=== PATIENT | male | born 1935 | race Two or more races ===

== ENCOUNTER 2022-12-02 13:12 | Inpatient (IN) | payer MEDICARE, BC ==
[~2022-12-02] VITALS: Ht 188 cm; Wt 79.3 kg
[2022-12-02 13:59] LABS: Basophils # (auto) 0.1 10 ^3/uL (0-0.2); Basophils % (auto) 0.6 % (0.0-2.0); Eosinophils # (auto) 0.1 10 ^3/uL (0-0.8); Eosinophils % (auto) 0.4 % (0.0-7.0); Hemoglobin 16.5 g/dL (13.5-17.5); Lymphocytes # (auto) 0.7 10 ^3/uL (0.4-5.4); Lymphocytes % (auto) 4.5 % (10.0-50.0); Mean Corpuscular Hemoglobin 33.9 pg (28.0-32.0); Mean Corpuscular Hgb Conc. 33.8 g/dL (32.0-36.0); Mean Corpuscular Volume 100.4 fL (80.0-100.0); Monocytes # (auto) 1.3 10 ^3/uL (0-1.3); Monocytes % (auto) 8.6 % (0.0-12.0); Neutrophils # (auto) 12.8 10 ^3/uL (1.6-8.6); Neutrophils % (auto) 85.9 % (37.0-80.0); Red Blood Cells 4.88 10^6/uL (4.5-5.90); Red Cell Distribution Width 14.1 % (11.8-14.3); White Blood Cell 14.9 10^3/uL (4.4-10.8)
[2022-12-02 14:20] LABS: Albumin 3.7 g/dL (3.4-5.0); BUN/Creatinine Ratio 24.2; Calcium 8.6 mg/dL (8.5-10.1); Magnesium 2.1 mg/dL (1.6-2.6)
[2022-12-02 14:22] LABS: Bilirubin, Total 0.6 mg/dL (0.2-1.0); Total Protein 7.3 g/dL (6.4-8.2)
[2022-12-02] MEDS ORDERED: IOHEXOL 350 MG/ML 100ML IJ ONE ×2 (16:14→16:39)
[2022-12-02] MEDS ORDERED: ATOR10TA52 PO (19:37)
[2022-12-02] MEDS ORDERED: ASPI-325 PO (19:37)
[2022-12-02] MEDS ORDERED: LEVO175T66 PO (19:37)
[2022-12-02] MEDS ORDERED: MORPHINE SULFATE INJ 2 MG/ml SYRG IV PRN (19:45)
[2022-12-02] MEDS: SODIUM CHLORIDE 0.9% 1,000 ML IV SCH (19:45)
[2022-12-02] MEDS ORDERED: cefTRIAXone 1GM/50ML D5W 50 ML IV ONE (19:45)
[2022-12-02] MEDS ORDERED: NITROGLYCERIN 0.4 MG SL TAB SL PRN (19:45)
[2022-12-02 19:59] LABS: Cholesterol 109 mg/dL (< 200)
[2022-12-02 20:01] LABS: HDL Cholesterol 50 mg/dL (40-59); LDL Cholesterol 56 mg/dL (< 100); Triglycerides 72 mg/dL (< 150)
[2022-12-03] MEDS: SODIUM CHLORIDE 0.9% 1,000 ML IV SCH ×3 (00:18→20:10)
[2022-12-03 00:55] LABS: Urine Bacteria NONE SEEN /hpf (None Seen); Urine Blood Negative /uL (Negative); Urine Mucus FEW (None Seen); Urine Specific Gravity > 1.050 (1.001-1.035); Urine WBC 3 /hpf (0 - 3)
[2022-12-03 01:16] LABS: Alcohol, Urine < 3.0 mg/dL (0-10); Barbiturate Scree,Urine NEGATIVE (NEGATIVE); Benzodiazephine Screen, Urine NEGATIVE (NEGATIVE); Cannabinoid Screen, Urine NEGATIVE (NEGATIVE)
[2022-12-03 01:18] LABS: Amphetamine Screen, Urine NEGATIVE (NEGATIVE); Cocaine Screen, Urine NEGATIVE (NEGATIVE); Opiate Scree,Urine NEGATIVE (NEGATIVE); Phencyclidine Screen, Urine NEGATIVE (NEGATIVE)
[2022-12-03] MEDS ORDERED: ONDANSETRON HCL 4 MG/2 ML VIAL IV PRN (05:30)
[2022-12-03] MEDS ORDERED: LEVOTHYROXINE SODIUM 175 MCG PO SCH (07:00)
[2022-12-03] MEDS ORDERED: PANTOPRAZOLE 40 MG/10 ML VIAL INJ IV SCH (10:00)
[2022-12-03] MEDS ORDERED: LORazepam 2MG/ML-1ML VIAL IV PRN (10:30)
[2022-12-03] MEDS: ASPirin-EC 81 mg tab PO SCH (12:13)
[2022-12-03] MEDS: cefTRIAXone 1GM/50ML D5W 50 ML IV SCH (12:14)
[2022-12-03 12:26] LABS: Folate (Folic Acid) 7.82 ng/mL (5.38-24)
[2022-12-03 22:02] VITALS: BP 126/69
[2022-12-03] MEDS: ATORVASTATIN 20 MG TAB PO SCH (23:10)
[2022-12-04] MEDS ORDERED: diphenhdrAMINE HCL 50 MG/1 ML VL IM ONE (02:45)
[2022-12-04] MEDS ORDERED: LORazepam 2MG/ML-1ML VIAL IV PRN ×2 (02:45→03:15)
[2022-12-04] MEDS: SODIUM CHLORIDE 0.9% 1,000 ML IV SCH ×3 (03:45→20:11)
[2022-12-04] MEDS: LEVOTHYROXINE SODIUM 88 MCG TAB PO SCH (07:12)
[2022-12-04] MEDS: LEVOTHYROXINE SODIUM 50 MCG TAB PO SCH (07:13)
[2022-12-04] MEDS ORDERED: LEVOTHYROXINE SODIUM 88 MCG TAB PO SCH (07:15)
[2022-12-04 08:00] VITALS: BP 103/51
[2022-12-04 08:07] LABS: RPR Non Reactive (Non Reactive)
[2022-12-04 08:47] LABS: Basophils # (auto) 0.1 10 ^3/uL (0-0.2); Basophils % (auto) 0.4 % (0.0-2.0); Eosinophils # (auto) 0 10 ^3/uL (0-0.8); Eosinophils % (auto) 0.1 % (0.0-7.0); Hematocrit 41.4 % (41.0-53.0); Hemoglobin 13.8 g/dL (13.5-17.5); Lymphocytes # (auto) 0.8 10 ^3/uL (0.4-5.4); Lymphocytes % (auto) 4.8 % (10.0-50.0); Mean Corpuscular Hemoglobin 33.5 pg (28.0-32.0); Mean Corpuscular Hgb Conc. 33.4 g/dL (32.0-36.0); Mean Corpuscular Volume 100.4 fL (80.0-100.0); Monocytes # (auto) 1.6 10 ^3/uL (0-1.3); Monocytes % (auto) 10.3 % (0.0-12.0); Neutrophils # (auto) 13.3 10 ^3/uL (1.6-8.6); Neutrophils % (auto) 84.4 % (37.0-80.0); Nucleated Red Blood Cells % 0.1 %; Red Blood Cells 4.12 10^6/uL (4.5-5.90); White Blood Cell 15.8 10^3/uL (4.4-10.8)
[2022-12-04 09:00] VITALS: BP 103/51
[2022-12-04 09:07] LABS: BUN/Creatinine Ratio 30.2; Calcium 7.6 mg/dL (8.5-10.1); Potassium 3.8 mmol/L (3.5-5.1)
[2022-12-04] MEDS: ASPirin-EC 81 mg tab PO SCH (10:50)
[2022-12-04] MEDS: cefTRIAXone 1GM/50ML D5W 50 ML IV SCH (10:50)
[2022-12-04] MEDS ORDERED: HALOPERIDOL LACTATE 5 MG/ML INJ VIAL IM PRN ×2 (11:45→20:45)
[2022-12-04 13:00] VITALS: BP 127/76
[2022-12-04] MEDS ORDERED: ALP15OS EACHEYE (20:25)
[2022-12-04] MEDS ORDERED: LATA0.0019 EACHEYE (20:25)
[2022-12-04] MEDS ORDERED: DORZ2SOL18 EACHEYE (20:25)
[2022-12-04 22:00] VITALS: BP 138/64
[2022-12-04] MEDS ORDERED: LATANOPROST 0.005 % OPTH(EYE) SOL 2.5ML RIGHTEYE SCH (22:00)
[2022-12-04] MEDS: ATORVASTATIN 20 MG TAB PO SCH ×2 (22:24→23:45)
[2022-12-04] MEDS: CYANOCOBALAMIN (B-12) 1000 MCG/1 ML VIAL IM ONE ×2 (22:24→23:45)
[2022-12-05] MEDS: SODIUM CHLORIDE 0.9% 1,000 ML IV SCH ×3 (03:45→19:45)
[2022-12-05 05:00] VITALS: BP 107/67
[2022-12-05] MEDS: LEVOTHYROXINE SODIUM 88 MCG TAB PO SCH (06:12)
[2022-12-05] MEDS: LEVOTHYROXINE SODIUM 50 MCG TAB PO SCH (06:12)
[2022-12-05 09:09] VITALS: BP 105/50
[2022-12-05] MEDS ORDERED: BRIMONIDINE 0.2% OPTH Soln 5ml EACHEYE SCH (10:00)
[2022-12-05] MEDS: TIMOLOL MAL 0.5% OPTH(EYE) SOL 5ML EACHEYE SCH ×2 (10:14→22:00)
[2022-12-05] MEDS: ASPirin-EC 81 mg tab PO SCH (10:15)
[2022-12-05] MEDS: CYANOCOBALAMIN 500 MCG TAB PO SCH (10:15)
[2022-12-05] MEDS: cefTRIAXone 1GM/50ML D5W 50 ML IV SCH (10:34)
[2022-12-05 13:00] VITALS: BP 111/56
[2022-12-05 13:16] LABS: BUN/Creatinine Ratio 19.2; Calcium 7.7 mg/dL (8.5-10.1); Magnesium 2.6 mg/dL (1.6-2.6); Potassium 3.5 mmol/L (3.5-5.1)
[2022-12-05 17:00] VITALS: BP_SYST 127; BP_SYST 128; BP_DIAS 59; BP_DIAS 70
[2022-12-05 21:53] VITALS: BP 133/66
[2022-12-05] MEDS ORDERED: LATANOPROST 0.005 % OPTH(EYE) SOL 2.5ML RIGHTEYE SCH (22:00)
[2022-12-05] MEDS: BRIMONIDINE 0.2% OPTH Soln 5ml RIGHTEYE SCH (22:44)
[2022-12-05] MEDS: LATANOPROST 0.005 % OPTH(EYE) SOL 2.5ML RIGHTEYE SCH (22:44)
[2022-12-05] MEDS: ATORVASTATIN 20 MG TAB PO SCH (22:44)
[2022-12-06] MEDS: SODIUM CHLORIDE 0.9% 1,000 ML IV SCH ×3 (03:45→19:45)
[2022-12-06 05:00] VITALS: BP 138/70
[2022-12-06] MEDS: LEVOTHYROXINE SODIUM 88 MCG TAB PO SCH (06:26)
[2022-12-06] MEDS: LEVOTHYROXINE SODIUM 50 MCG TAB PO SCH (06:26)
[2022-12-06 09:00] VITALS: BP 134/72
[2022-12-06] MEDS: cefTRIAXone 1GM/50ML D5W 50 ML IV SCH (09:03)
[2022-12-06] MEDS: TIMOLOL MAL 0.5% OPTH(EYE) SOL 5ML EACHEYE SCH ×2 (09:41→21:27)
[2022-12-06] MEDS: ASPirin-EC 81 mg tab PO SCH (09:42)
[2022-12-06] MEDS: CYANOCOBALAMIN 500 MCG TAB PO SCH (09:42)
[2022-12-06] MEDS: LATANOPROST 0.005 % OPTH(EYE) SOL 2.5ML RIGHTEYE SCH ×2 (09:42→21:27)
[2022-12-06 14:30] VITALS: BP 140/76
[2022-12-06] MEDS: ALPRAZolam 0.25 MG TAB PO PRN (17:43)
[2022-12-06] MEDS: ATORVASTATIN 20 MG TAB PO SCH (21:26)
[2022-12-06] MEDS: BRIMONIDINE 0.2% OPTH Soln 5ml RIGHTEYE SCH (21:27)
[2022-12-06 21:45] VITALS: BP 148/84
[2022-12-07] MEDS: SODIUM CHLORIDE 0.9% 1,000 ML IV SCH ×2 (03:45→09:53)
[2022-12-07] MEDS: LEVOTHYROXINE SODIUM 88 MCG TAB PO SCH (06:04)
[2022-12-07] MEDS: LEVOTHYROXINE SODIUM 50 MCG TAB PO SCH (06:04)
[2022-12-07 09:00] VITALS: BP 135/73
[2022-12-07] MEDS: cefTRIAXone 1GM/50ML D5W 50 ML IV SCH (09:31)
[2022-12-07] MEDS: CYANOCOBALAMIN 500 MCG TAB PO SCH (09:33)
[2022-12-07] MEDS: LATANOPROST 0.005 % OPTH(EYE) SOL 2.5ML RIGHTEYE SCH (09:33)
[2022-12-07] MEDS: TIMOLOL MAL 0.5% OPTH(EYE) SOL 5ML EACHEYE SCH (09:33)
[2022-12-07] MEDS: ASPirin-EC 81 mg tab PO SCH (09:33)
[2022-12-07 13:15] VITALS: BP 136/78
[2022-12-07 13:37] LABS: Potassium 3.4 mmol/L (3.5-5.1)
[2022-12-07 13:40] LABS: BUN/Creatinine Ratio 15.1; Calcium 8.3 mg/dL (8.5-10.1)
[2022-12-07] MEDS: ALPRAZolam 0.25 MG TAB PO PRN (15:51)
[2022-12-07 17:46] VITALS: BP 130/82
[2022-12-07 17:47] VITALS: BP 131/88
[2022-12-07] MEDS ORDERED: POTASSIUM CHL 20 Meq TABLET PO ONE (19:00)
== END 2022-12-07 19:00 | disposition home health service (06) | DRG 312 ==
LOC: EDBD 13:12 → ER 13:12 → TELE 19:41 → TELE-WESTW 12-03 21:24
PROVIDERS: ADMIT Registered Nurse; ATTEND Internal Medicine Geriatric Medicine
DX: R55 Syncope and collapse (principal); G93.41 Metabolic encephalopathy; N39.0 Urinary tract infection, site not specified; F03.92 Unspecified dementia, unspecified severity, with psychotic disturbance; F10.10 Alcohol abuse, uncomplicated; E03.9 Hypothyroidism, unspecified; E86.0 Dehydration; H54.61 Unqualified visual loss, right eye, normal vision left eye; I44.0 Atrioventricular block, first degree; I49.5 Sick sinus syndrome; R73.03 Prediabetes; I95.9 Hypotension, unspecified; R79.89 Other specified abnormal findings of blood chemistry; E78.5 Hyperlipidemia, unspecified; Z71.41 Alcohol abuse counseling and surveillance of alcoholic; Z20.822 Contact with and (suspected) exposure to COVID-19; Z82.49 Family history of ischemic heart disease and other diseases of the circulatory system; Z86.73 Personal history of transient ischemic attack (TIA), and cerebral infarction without residual deficits
CPT/HCPCS: 36415; 70450; 70551; 71045; 71275; 80048; 80053; 80061; 80307; 80320; 81001; 82607; 82746; 83036; 83090; 83735; 83880; 84443; 84484; 85025; 85379; 86592; 87040; 87086; 87426; 93005; 93306; 93886; 95819; 97116; 97530; C9113; G0378; J0696

== ENCOUNTER 2024-09-04 13:34 | Inpatient (IN) | payer MEDICARE, BC ==
[~2024-09-04] VITALS: Ht 180.3 cm; Wt 72.7 kg
[~2024-09-04 13:34] MED LIST: ALP15OS EACHEYE; ASPI-325 PO; ATOR10TA52 PO; BRIM0.1S3 RIGHTEYE; DORZ2SOL18 EACHEYE; LATA0.008 RIGHTEYE; LEVO175T4 PO
--- NOTE | 2024-09-04 14:15 | ED.PDOC ---
History of Present Illness HPI Comments 89Y M with PMHx HLD, TIA, and rt ankle surgery presents to ED for chief complaint fall injury. Pt states he fell out of bed and hit his head on an open dresser. Pt takes ASA daily. No known allergies. Chief Complaint: Fall Injury Time Seen by MD: 14:04 Primary Care Provider: barby Reviewed Notes: Medications, Allergies Allergies: Coded Allergies: NO KNOWN ALLERGIES (Unverified , 04/04/21) Home Meds Reported Medications Dorzolamide-Timolol (Dorzolamide Hcl/Timolol M) 1 Ml Aimee, 1 DROP EACHEYE 12/04/22 Latanoprost (LATANOPROST) 0.005 % Aimee, 1 DROP EACHEYE 12/04/22 Brimonidine Tartrate (ALPHAGAN P 0.15% OPTHALMIC) [address], 1 DROP EACHEYE 12/04/22 Levothyroxine Sodium (Levothyroxine Sodium) 175 Mcg Tab, 0.75 TAB PO DAILY 12/02/22 Aspirin (Aspirin Low Dose) 81 Mg Tab, 1 TAB PO DAILY 12/02/22 Atorvastatin Calcium (ATORVASTATIN CALCIUM) 10 Mg Tab, 1 TAB PO DAILY 12/02/22 Information Source: Patient, Spouse Mode of Arrival: Ambulatory Severity: Mild Timing: Hours Duration: Since onset Past Medical History PAST MEDICAL HISTORY: High Lipids, TIA Surgical History (Other): Rt ankle surgery x4 Family History Family History: Unknown Family History (Other): IN Social History Smoker: Non-Smoker Alcohol: Heavy Drugs: Denies Drug Use Lives In: Home Constitutional: denies: chills, diaphoresis, fatigue, fever, malaise, sweats, weakness, others EENTM: denies: blurred vision, double vision, ear bleeding, ear discharge, ear drainage, ear pain, ear ringing, eye pain, eye redness, hearing loss, mouth pain, mouth swelling, nasal discharge, nose bleeding, nose congestion, nose pain, photophobia, tearing, throat pain, throat swelling, voice changes, others Respiratory: denies: cough, hemoptysis, orthopnea, SOB at rest, shortness of breath, SOB with excertion, stridor, wheezing, others Cardiovascular: denies: chest pain, dizzy spells, diaphoresis, Dyspnea on exertion, edema, irregular heart beat, left arm pain, lightheadedness, palpitations, PND, syncope, others Gastrointestinal: denies: abdomen distended, abdominal pain, blood streaked bowels, constipated, diarrhea, dysphagia, difficulty swallowing, hematemesis, melena, nausea, poor appetite, poor fluid intake, rectal bleeding, rectal pain, vomiting, others Genitourinary: denies: burning, dysuria, flank pain, frequency, hematuria, inc ontinence, penile discharge, penile sore, pain, testicle pain, testicle swelling, urgency, others Neurological: denies: dizziness, fainting, headache, left sided numbness, left sided weakness, numbness, paresthesia, pre-existing deficit, right sided numbness, right sided weakness, seizure, speech problems, tingling, tremors, weakness, others Musculoskeletal: denies: back pain, gout, joint pain, joint swelling, muscle pain, muscle stiffness, neck pain, others Integumetry: reports: wounds; denies: bruises, change in color, change in hair/nails, dryness, laceration, lesions, lumps, rash, others Allergic/Immunocompromised: denies: Difficulty Healing, Frequent Infections, Hives, Itching, others Hematologic/Lymphatic: denies: anemia, blood clots, easy bleeding, easy bruising, swollen glands, others Endocrine: denies: excessive hunger, excessive sweating, excessive thirst, excessive urination, flushing, intolerance to cold, intolerance to heat, unexplained weight gain, unexplained weight loss, others Psychiatric: denies: anxiety, bipolar disorder, depression, hopeless, panic disorder, schizophrenia, sleepless, suicidal, others All Other Systems: Reviewed and Negative Physical Exam General Appearance: Moderate Distress, Normal HEENT: Normal ENT Inspection, Pharynx Normal, TMs Normal Neck: Full Range of Motion, Non-Tender, Normal, Normal Inspection Respiratory: Chest Non-Tender, Lungs Clear, No Accessory Muscle Use, No Respiratory Distress, Normal Breath Sounds Cardiovascular: No Edema, No JVD, No Murmur, No Gallop, Normal Peripheral Pulses, Regular Rate/Rhythm Breast Exam: Deferred Gastrointestinal: No Organomegaly, Non Tender, No Pulsatile Mass, Normal Bowel Sounds, Soft Genitalia: Deferred Pelvic: Deferred Rectal: Deferred Extremities: No calf tenderness, Normal capillary refill, Normal inspection, Normal range of motion, Non-tender, No pedal edema Musculoskeletal : Apperance: Normal Neurologic: Alert, edge polisher II-XII nml as Tested, No Motor Deficits, Normal Affect, Normal Mood, No Sensory Deficits Cerebellar Function: NOT DONE Reflexes: NOT DONE Skin: Wounds (face) Peripheral Pulses: 3+ Radial (R), 3+ Radial (L) Lymphatic: No Adenopathy Was a procedure done? Was a procedure done?: No Differential Dx Considerations may include: Head injury Electrolyte imbalance X-Ray, Labs, Meds, VS Vital Signs Date Time Temp Pulse Resp B/P (MAP) Pulse Ox O2 Delivery O2 Flow Rate FiO2 09/04/24 13:57 98.3 64 1 140/86 (104) 96 Lab Test 09/04/24 14:22 Range/Units White Blood Count Pending Red Blood Count Pending Hemoglobin Pending Hematocrit Pending Mean Corpuscular Volume Pending Mean Corpuscular Hemoglobin Pending Mean Corpuscular Hemoglobin Concent Pending Red Cell Distribution Width Pending Platelet Count Pending Mean Platelet Volume Pending Neutrophils (%) (Auto) Pending Lymphocytes (%) (Auto) Pending Monocytes (%) (Auto) Pending Basophils (%) (Auto) Pending Neutrophils # (Auto) Pending Lymphocytes # (Auto) Pending Monocytes # (Auto) Pending Sodium Level Pending Potassium Level Pending Chloride Level Pending Carbon Dioxide Level Pending Anion Gap Pending Blood Urea Nitrogen Pending Creatinine Pending Glomerular Filtration Rate Calc Pending BUN/Creatinine Ratio Pending Serum Glucose Pending Calcium Level Pending Troponin I High Sensitivity Pending [place] [address] Ph: [phone] DIAGNOSTIC IMAGING Diagnostic Imaging Report : [id number] Signed PATIENT: ROMANA BARROS ACCT: [id number] UNIT: [id number] : 1935 LOC: ER ROOM / BED: / AGE / SEX: 89 / M ADM STATUS: REG ER SERVICE 1411 ORDERING PHYSICIAN: ROLANDO SALAS MD PROCEDURE(s): HWOCT - HEAD WITHOUT CONTRAST REASON: fall ORDER NUMBER(s): [id number], ACCESSION NUMBER(s): [id number] EXAM: CT HEAD WITHOUT CONTRAST INDICATION: fall TECHNIQUE: CT of the head without intravenous contrast. Radiation Dose Information: CT Dose: CTDI volume is 63.35 mGy. Dose-length product is 1248.19 mGy*cm The dose indicators for CT are the volume Computed Tomography (CT) Dose Index (CTDIvol) and the Dose Length Product (DLP), and are measured in units of mGy and mGy-cm, respectively. These indicators are not patient dose, but values generated from the CT scanner acquisition factors. The report includes radiation exposure data for exposures received during this examination. COMPARISON: BRAIN HEAD WO CONTRAST on DOS: 12/03/22, CT ANGIO CHEST CONTRAST on DOS: 12/02/22, HEAD WITHOUT CONTRAST on DOS: 12/02/22 FINDINGS: There is no evidence of acute intracranial hemorrhage, extra-axial collection, mass effect, midline shift, herniation or hydrocephalus. The ventricles, sulci and cisterns are age appropriate. The felder-white differentiation is intact. Patchy periventricular and subcortical white matter hypoattenuation is nonspecific but may be related to small vessel ischemic disease. The visualized paranasal sinuses and mastoid air cells are clear. The surrounding soft tissues and osseous structures are unremarkable. IMPRESSION: No acute intracranial abnormality. ATED BY: JEREMY KIMBALL MD DICTATED DATE/TIME: 09/04/241434 SIGNED BY: JEREMY KIMBALL MD SIGNED DATE/TIME: 09/04/241434 CC: Patient alert. Status post fall. Hit his head against the cabinet. Vitals stable. Saturation pristine on room air. CT of the head reviewed does not show any acute changes. Because of the head injury we will need to observe. Explained to patient. Time of 1ST Reevaluation: 14:34 Reevaluation 1ST: Unchanged Patient Education/Counseling: Diagnosis, Treatment Family Education/Counseling: Diagnosis, Treatment Departure 1 Departure Time of Disposition: 14:52 Impression: Primary Impression: Head injury Qualified Codes: S09.90XA - Unspecified injury of head, initial encounter Disposition: ADMITTED INPATIENT Admit to: Med Surg Condition: Guarded Critical Care Note Critical Care Time?: No Stability Stability form required: No Heart Score Heart Score: Heart Score Response (Comments) Value History Slightly Suspicious 0 EKG Normal 0 Age >65 2 Risk Factors >3 or Hx ASHD 2 Troponin Normal limit 0 Total 4 I personally scribed for ROLANDO SALAS MD ([email or web address]) on 09/04/24 at 14:15. Electronically submitted by Sadia Raymond ([email or web address]). I personally scribed for ROLANDO SALAS MD ([email or web address]) on 09/04/24 at 14:54. Electronically submitted by Sadia Raymond ([email or web address]). ROLANDO SALAS MD Sep 04, 2024 14:15
--- NOTE | 2024-09-04 14:37 | DVH ---
EXAM: CT HEAD WITHOUT CONTRAST INDICATION: fall TECHNIQUE: CT of the head without intravenous contrast. Radiation Dose Information: CT Dose: CTDI volume is 63.35 mGy. Dose-length product is 1248.19 mGy*cm The dose indicators for CT are the volume Computed Tomography (CT) Dose Index (CTDIvol) and the Dose Length Product (DLP), and are measured in units of mGy and mGy-cm, respectively. These indicators are not patient dose, but values generated from the CT scanner acquisition factors. The report includes radiation exposure data for exposures received during this examination. COMPARISON: BRAIN HEAD WO CONTRAST on DOS: 12/03/22, CT ANGIO CHEST CONTRAST on DOS: 12/02/22, HEAD WITHO UT CONTRAST on DOS: 12/02/22 FINDINGS: There is no evidence of acute intracranial hemorrhage, extra-axial collection, mass effect, midline s hift, herniation or hydrocephalus. The ventricles, sulci and cisterns are age appropriate. The felder-white differentiation is intact. Patchy periventricular and subcortical white matter hypoattenuation is nonspecific but may be related to small vessel ischemic disease. The visualized paranasal sinuses and mastoid air cells are clear. The surrounding soft tissues and osseous structures are unremarkable. IMPRESSION: No acute intracranial abnormality.
[2024-09-04 14:53] LABS: Basophils # (auto) 0.1 10 ^3/uL (0-0.2); Basophils % (auto) 1.1 % (0.0-2.0); Eosinophils # (auto) 0.1 10 ^3/uL (0-0.8); Eosinophils % (auto) 1.3 % (0.0-7.0); Hematocrit 47.2 % (41.0-53.0); Hemoglobin 16.5 g/dL (13.5-17.5); Lymphocytes % (auto) 13.4 % (10.0-50.0); Mean Corpuscular Hemoglobin 35.7 pg (28.0-32.0); Mean Corpuscular Hgb Conc. 34.9 g/dL (32.0-36.0); Mean Corpuscular Volume 102.3 fL (80.0-100.0); Monocytes # (auto) 0.8 10 ^3/uL (0-1.3); Monocytes % (auto) 10.7 % (0.0-12.0); Neutrophils # (auto) 5.4 10 ^3/uL (1.6-8.6); Neutrophils % (auto) 73.5 % (37.0-80.0); Nucleated Red Blood Cells % 0.1 %; Platelet Count (auto) 243 10^3/uL (140-450); Red Blood Cells 4.62 10^6/uL (4.5-5.90); Red Cell Distribution Width 14.9 % (11.8-14.3); White Blood Cell 7.3 10^3/uL (4.4-10.8)
[2024-09-04 15:06] LABS: Chloride 108 mmol/L (98-107); Potassium 4.9 mmol/L (3.5-5.1); Sodium 141 mmol/L (136-145)
[2024-09-04 15:07] LABS: Anion Gap 3 (5-15); Carbon Dioxide 30 mmol/L (20-31)
[2024-09-04 15:12] LABS: BUN/Creatinine Ratio 21.3 (10.0-20.0); Blood Urea Nitrogen 17 mg/dL (9-23); Glucose 94 mg/dL (74-106)
[2024-09-04 21:07] VITALS: PULSE 99; RESP 16; O2SAT 97
[2024-09-04] MEDS ORDERED: ONDANSETRON HCL 4 MG/2 ML VIAL IV PRN (21:45)
[2024-09-04] MEDS ORDERED: ACETAMINOPHEN 325 MG TAB PO PRN (21:45)
[2024-09-04] MEDS ORDERED: NITROGLYCERIN 0.4 MG SL TAB SL PRN (21:45)
[2024-09-04] MEDS ORDERED: MORPHINE SULFATE INJ 2 MG/ml SYRG IV PRN (21:45)
[2024-09-04 22:20] LABS: Basophils # (auto) 0.1 10 ^3/uL (0-0.2); Eosinophils # (auto) 0.1 10 ^3/uL (0-0.8); Eosinophils % (auto) 1.3 % (0.0-7.0); Hematocrit 46.1 % (41.0-53.0); Hemoglobin 15.9 g/dL (13.5-17.5); Lymphocytes # (auto) 1.1 10 ^3/uL (0.4-5.4); Lymphocytes % (auto) 15.1 % (10.0-50.0); Mean Corpuscular Hemoglobin 35.2 pg (28.0-32.0); Mean Corpuscular Hgb Conc. 34.4 g/dL (32.0-36.0); Mean Corpuscular Volume 102.2 fL (80.0-100.0); Monocytes # (auto) 0.9 10 ^3/uL (0-1.3); Monocytes % (auto) 11.9 % (0.0-12.0); Neutrophils # (auto) 5.2 10 ^3/uL (1.6-8.6); Neutrophils % (auto) 70.7 % (37.0-80.0); Nucleated Red Blood Cells % 0.1 %; Platelet Count (auto) 208 10^3/uL (140-450); Red Blood Cells 4.51 10^6/uL (4.5-5.90); Red Cell Distribution Width 14.8 % (11.8-14.3); White Blood Cell 7.3 10^3/uL (4.4-10.8)
[2024-09-04 22:27] LABS: Alanine Aminotransferase 20 U/L (7-40); Albumin 4.2 g/dL (3.2-4.8); Alkaline Phosphatase 88 U/L (46-116); Anion Gap 7 (5-15); Aspartate Aminotransferase 26 U/L (13-40); BUN/Creatinine Ratio 21.7 (10.0-20.0); Blood Urea Nitrogen 15 mg/dL (9-23); Calcium 9.4 mg/dL (8.7-10.4); Carbon Dioxide 23 mmol/L (20-31); Chloride 112 mmol/L (98-107); Glucose 100 mg/dL (74-106); Sodium 142 mmol/L (136-145); Total Protein 7.2 g/dL (5.7-8.2)
--- NOTE | 2024-09-04 22:41 | DVHHPRES ---
History of Present Illness Resident Creating Document: JON HINOJOSA RESIDENT History of Present Illness ROMANA BARROS is a 89 years old hard of hearing male with PMH of dementia, HLD, TIA presented to the ED with the chief complaints of mechanical fall today morning. Patient is poor historian, spoken with interventional technologist or home nurse Alie reported today moaning patient while waking up from the bed he fell on table without LOC, hit his head. Patient he is not able to recall exactly what happened but denies dizziness, nausea, vomiting, fever, chest pain, shortness of breath and other associated symptoms. Past Medical History dementia, HLD, TIA Past Surgical History Rt ankle surgery x4, lump removal from right elbow Family History: None Past Social History Lives alone. Denies smoking, alcohol and other drug abuse Review of Systems Constitutional: Yes: Weakness Eyes: Other (age related to vision changes) ENT: Other (Hard of hearing) Respiratory: No: Cough, Dry, Shortness of breath, SOB with excertion, Wheezing, Hemoptysis, Pleuritic Pain, Sputum, Wheezing, Other Cardiovascular: No: Chest Pain, Palpitations, Orthopnea, Paroxysmal Noc. Dyspnea, Edema, Lt Headedness, Other Gastrointestinal: No: Nausea, Vomiting, Abdominal Pain, Diarrhea, Constipation, Melena, Hematochezia, Other Genitourinary: No Dysuria, No Frequency, No Incontinence, No Hematuria, No Retention, No Other Musculoskeletal: No: other, neck pain, shoulder pain, arm pain, back pain, hand pain, leg pain, foot pain Skin: Bruising, Other (Wound on right temporal head) Neurological: Confusion Allergies: Coded Allergies: NO KNOWN ALLERGIES (Unverified , 04/04/21) Medications Current Medications Medications Dose Ordered Sig/Sarah Route Start Time Stop Time Status Last Admin Dose Admin Ondansetron HCl 4 mg Q4HP PRN IV 09/04/24 21:45 Acetaminophen 650 mg Q6HP PRN PO 09/04/24 21:45 Nitroglycerin 0.4 mg Q5MINP PRN SL 09/04/24 21:45 Morphine Sulfate 2 mg Q30M PRN IV 09/04/24 21:45 Exam Vital Signs Vital Signs Date Time Temp Pulse Resp B/P (MAP) Pulse Ox O2 Delivery O2 Flow Rate FiO2 09/04/24 21:07 99 16 97 Room Air* 0 09/04/24 21:07 98.3 131/91 (104) 98.3 Exam Pt is lying on bed General Appearance: Alert, Oriented X2, Cooperative, mild confusion and distress HEENT: Wound on right temporal head, likely multiple age related bruises Respiratory: Clear to auscultation, Normal air movement, No added sounds Cardiovascular: Regular rate, Normal S1, Normal S2, No murmurs Abdominal: Active bowel sounds, Soft, no distention, no tenderness Extremities: No edema, Normal pulses, No tenderness/swelling Skin: Wound on right temporal head, likely multiple age related bruises Neuro: Normal speech, sensorimotor deficits none Psych/Mental Status: Mental status NL, Mood NL Nurse was there as sharperone during examination Labs/Xrays Labs Test 09/04/24 22:24 09/04/24 22:00 09/04/24 14:22 09/04/24 14:20 Range/Units White Blood Count 7.3 4.4-10.8 10^3/uL Red Blood Count 4.51 4.5-5.90 10^6/uL Hemoglobin 15.9 13.5-17.5 g/dL Hematocrit 46.1 41.0-53.0 % Mean Corpuscular Volume 102.2 H 80.0-100.0 fL Mean Corpuscular Hemoglobin 35.2 H 28.0-32.0 pg Mean Corpuscular Hemoglobin Concent 34.4 32.0-36.0 g/dL Red Cell Distribution Width 14.8 H 11.8-14.3 % Platelet Count 208 140-450 10^3/uL Mean Platelet Volume 8.0 6.9-10.8 fL Neutrophils (%) (Auto) 70.7 37.0-80.0 % Lymphocytes (%) (Auto) 15.1 10.0-50.0 % Monocytes (%) (Auto) 11.9 0.0-12.0 % Eosinophils (%) (Auto) 1.3 0.0-7.0 % Basophils (%) (Auto) 1.0 0.0-2.0 % Neutrophils # (Auto) 5.2 1.6-8.6 10 ^3/uL Lymphocytes # (Auto) 1.1 0.4-5.4 10 ^3/uL Monocytes # (Auto) 0.9 0-1.3 10 ^3/uL Eosinophils # (Auto) 0.1 0-0.8 10 ^3/uL Basophils # (Auto) 0.1 0-0.2 10 ^3/uL Nucleated Red Blood Cells 0.1 % Sodium Level 142 136-145 mmol/L Potassium Level 4.0 3.5-5.1 mmol/L Chloride Level 112 H 98-107 mmol/L Carbon Dioxide Level 23 20-31 mmol/L Anion Gap 7 5-15 Blood Urea Nitrogen 15 9-23 mg/dL Creatinine 0.69 L 0.700-1.30 mg/dL Glomerular Filtration Rate Calc 89 >90 mL/min BUN/Creatinine Ratio 21.7 H 10.0-20.0 Serum Glucose 100 74-106 mg/dL Calcium Level 9.4 8.7-10.4 mg/dL Total Bilirubin 1.0 0.2-1.0 mg/dL Aspartate Amino Transferase (AST) 26 13-40 U/L Alanine Aminotransferase (ALT) 20 7-40 U/L Alkaline Phosphatase 88 46-116 U/L Total Protein 7.2 5.7-8.2 g/dL Albumin 4.2 3.2-4.8 g/dL Troponin I High Sensitivity 3 L </=54 ng/L B-Type Natriuretic Peptide 170.59 0-100 pg/mL Assessment/Plan Assessment/Plan # mechanical fall without LOC # ? Acute toxic metabolic encephalopathy # dementia - head CT showed no acute changes - carotid Doppler, pending - monitor lab - fall precautions - ordered UDS SCDs for now No GI be PPX Cardiac diet Goals of care discussed with the patient for more than 27 minutes: Full code status Case management discussed with Dr. Mckeon, patient and nurse Plan discussed with: Patient My Orders Orders - JON HINOJOSA RESIDENT Procedure Category Date Status Time Admit ADMIT 09/04/24 Transmitted 21:44 Allergies KAREEM 09/04/24 In Process 21:44 Code Status CODE 09/04/24 Transmitted 21:44 Ondansetron Hcl PHA 09/04/24 In Process (Zofran) 21:45 Complete Blood Count LAB 09/05/24 Verified 04:00 Comprehensive LAB 09/05/24 Verified Metabolic Panel 04:00 Cardiac DIET 09/05/24 Transmitted Diet-2gna,Lofat,Lochol Breakfast Pt Request For Service PT 09/04/24 Logged 21:44 Carotid Duplx W Color US 09/04/24 Taken DOP 21:44 Acetaminophen Tablet PHA 09/04/24 In Process (Tylenol Tablet) 21:45 Nitroglycerin PHA 09/04/24 In Process Sublingual (Ntrostat 21:45 Morphine Sulfate PHA 09/04/24 In Process Injection 21:45 Oxygen By Nasal RT 09/04/24 Transmitted Cannula 21:[address] [facility] 09/04/24 In Process Pain 21:[address] [facility] 09/04/24 In Process From Base 21:[address] [facility] 09/04/24 In Process 24 Hours 21:[address] [facility] 09/04/24 In Process Protocol 21:[address] [facility] 09/04/24 In Process Every Shift 21:44 Vitamin D, 25-Hydroxy LAB 09/04/24 Logged 22:24 Vitamin B12 LAB 09/04/24 Logged 22:24 Urinalysis LAB 09/04/24 Logged 22:24 Thyroid Stimulating LAB 09/04/24 In Process Hormone 22:24 Stool Occult Blood LAB 09/05/24 Verified 04:00 PTPTT LAB 09/04/24 Logged 22:24 Hemoglobin A1c LAB 09/04/24 In Process 22:24 Drug Screen LAB 09/04/24 Logged 22:24 Orthostatic Vital ED NURSING 09/04/24 Transmitted Signs Blood Alcohol LAB 09/04/24 Logged 22:31 * Wound Consult CONS 09/04/24 Transmitted Folate (Folic Acid) LAB 09/04/24 Logged 22:33 Fall Precautions KAREEM 09/04/24 In Process Initiated 22:34 Date of Service: Sep 04, 2024 Billing Provider: SHONDA MCKEON MD Common Visit Codes: [id number] INP/OBS CARE (HIGH) Secondary Visit Codes: [id number] CARE PLAN 30 MINUTES JON HINOJOSA RESIDENT Sep 04, 2024 22:40 SHONDA MCKEON MD Sep 05, 2024 18:18
--- NOTE | 2024-09-04 22:50 | DVH ---
Carotid Duplex Date: 09/04/2024 09:54 PM Clinical History: Dizziness Comparison: CAROTID DUPLX W COLOR DOP on DOS: 12/03/22 Technique: Duplex Doppler evaluation of the extracranial carotid and vertebral arteries including color Doppler and spectral/pulsed waveform analysis was performed. Findings: RIGHT SIDE: The peak systolic velocities are 69.4 cm/s in the distal CCA and 76.2 cm/s in the proximal ICA.The IC A/CCA ratio is less than 2. The external carotid artery is patent with peak systolic velocity of 95.4 cm/s proximally. There is appropriate antegrade flow in the right vertebral artery, 53.1 cm/s. LEFT SIDE: The peak systolic velocities are 54 0.5 cm/s in the distal CCA and 161 0.6 cm/s in the proximal ICA. . The ICA/CCA ratio is 3.0 greater than 70% stenosis The external carotid artery is patent with peak systolic velocity of 220.5 cm/s proximally. There is appropriate antegrade flow in the left vertebral artery. IMPRESSION: 1. No hemodynamically significant stenosis noted in the right carotid system. 2. Greater 70% stenosis of the left internal carotid. 3. Reference: Radiology 2003; 229:340-346
[2024-09-04 23:02] LABS: INR 1.01 (0.9-1.15); Partial Thromboplastin Time 23.1 SEC (24.5-34.5); Prothrombin Time 10.7 sec (9.3-11.8)
[2024-09-04 23:51] VITALS: BP 119/65; PULSE 83; RESP 18; TEMP 97.6; O2SAT 94
[2024-09-05 00:13] VITALS: BP 119/65; PULSE 83; RESP 18; TEMP 97.6; O2SAT 94
[2024-09-05 05:00] VITALS: BP 120/67; PULSE 58; RESP 18; TEMP 98; O2SAT 95
[2024-09-05 06:23] LABS: Basophils # (auto) 0 10 ^3/uL (0-0.2); Eosinophils # (auto) 0.1 10 ^3/uL (0-0.8); Hemoglobin 14.2 g/dL (13.5-17.5); Lymphocytes # (auto) 0.9 10 ^3/uL (0.4-5.4); Monocytes # (auto) 0.7 10 ^3/uL (0-1.3); Neutrophils # (auto) 2.8 10 ^3/uL (1.6-8.6); Nucleated Red Blood Cells % 0.3 %
[2024-09-05 06:24] LABS: Basophils % (auto) 0.4 % (0.0-2.0); Hematocrit 41.3 % (41.0-53.0); Lymphocytes % (auto) 19.7 % (10.0-50.0); Mean Corpuscular Hemoglobin 35.2 pg (28.0-32.0); Mean Corpuscular Hgb Conc. 34.5 g/dL (32.0-36.0); Mean Corpuscular Volume 102.2 fL (80.0-100.0); Monocytes % (auto) 15.2 % (0.0-12.0); Neutrophils % (auto) 62.7 % (37.0-80.0); Platelet Count (auto) 199 10^3/uL (140-450); Red Blood Cells 4.04 10^6/uL (4.5-5.90); Red Cell Distribution Width 14.8 % (11.8-14.3); White Blood Cell 4.4 10^3/uL (4.4-10.8)
[2024-09-05 06:37] LABS: Alanine Aminotransferase 18 U/L (7-40); Albumin 3.6 g/dL (3.2-4.8); Alkaline Phosphatase 76 U/L (46-116); Anion Gap 4 (5-15); Aspartate Aminotransferase 22 U/L (13-40); BUN/Creatinine Ratio 25.8 (10.0-20.0); Blood Urea Nitrogen 16 mg/dL (9-23); Calcium 8.7 mg/dL (8.7-10.4); Carbon Dioxide 26 mmol/L (20-31); Chloride 112 mmol/L (98-107); Glucose 85 mg/dL (74-106); Potassium 3.6 mmol/L (3.5-5.1); Sodium 142 mmol/L (136-145); Total Protein 6.1 g/dL (5.7-8.2)
[2024-09-05] MEDS ORDERED: LEVOTHYROXINE SODIUM 50 MCG TAB PO ONE (07:45)
[2024-09-05 08:05] LABS: Triglycerides 80 mg/dL (< 150)
[2024-09-05 08:06] LABS: LDL Cholesterol 69 mg/dL (< 100)
[2024-09-05 08:07] LABS: Cholesterol 126 mg/dL (< 200); HDL Cholesterol 42 mg/dL (40-59)
[2024-09-05 09:10] VITALS: BP 127/66; PULSE 40; RESP 20; TEMP 98.7; O2SAT 95
[2024-09-05] MEDS: LEVOTHYROXINE SODIUM 100 MCG TAB PO ONE (10:27)
[2024-09-05] MEDS: ASPirin 81 mg TAB PO SCH (10:27)
[2024-09-05] MEDS: LEVOTHYROXINE SODIUM 25 MCG TAB PO ONE (10:28)
[2024-09-05 12:56] VITALS: BP 125/54; PULSE 70; RESP 20; TEMP 98.7; O2SAT 97
--- NOTE | 2024-09-05 15:23 | DVHPNRES ---
Progress Note Date Seen: Sep 05, 2024 Resident Creating Document: CLARISA ORTIZ RESIDENT Medical Necessity Reason Pt with a Central, PICC or Fol: No Subjective Review of Systems Patient is 89 years old male with past medical history of HLD, TIA, hypothyroidism, ? Dementia was to the ER after a fall at home. As per patient patient woke up from sleep 1 day ago and tripped over and fell and he hit his head. Patient denied losing consciousness. Denied chest pain, shortness of breath, dizziness. Initial blood lab workup revealed BNP 170, troponin I 3, TSH 6.85, serum alcohol level > 3, CT head negative for acute intracranial hemorrhage or infarction. Carotid Doppler revealed > 70% stenosis in the left internal carotid artery. PMH-HLD, TIA,? Dementia PSH- Rt ankle surgery x4, lump removal from right elbow Allergy- NKDA Personal History/ Social History- lives alone, denies smoking/alcohol/other drug abuse Patient was seen today at the bedside. Patient reports doing okay today Cardiovascular- deny acute chest pain or shortness of breath or cough or palpitation Respiratory- denies cough or short of breath or wheezing Gastrointestinal- denies any rectal bleeding, nausea or vomiting Musculoskeletal-denies acute joint swelling or tenderness or redness Neurological- denies acute dysarthria, dysphagia, change in vision Psychiatry- denies depression or SI or HI Skin- denies acute rash or purpura Patient was seen today for clinical evaluation. Labs and chart reviewed. Patient reports doing well. Injection Molding Technician spoke to patient's caregiver case, . Patient's caregiver Alie reported patient had reaction/bump before with levothyroxine. Last time patient to levothyroxine was 3 years before as per skin care specialist. Levothyroxine was discontinued for now. Patient's caregiver denied patient losing loss of consciousness following fall. Carotid Doppler revealed > 70% stenosis in the left internal carotid artery. Ordered CT angio of the head and neck for further evaluation and care. Objective vital signs Vital Sign Date Time Temp Pulse Resp B/P (MAP) Pulse Ox O2 Delivery O2 Flow Rate FiO2 09/05/24 12:56 98.7 70 20 125/54 (77) 97 98.7 09/05/24 07:30 Room Air* 0 21 Total Intake and Output 09/04/24 09/04/24 09/05/24 15:00 23:00 07:00 Intake Total 350 ml Output Total 250 ml Balance 100 ml medications Current Medications Medications Dose Ordered Sig/Sarah Route Start Time Stop Time Status Last Admin Dose Admin Ondansetron HCl 4 mg Q4HP PRN IV 09/04/24 21:45 Acetaminophen 650 mg Q6HP PRN PO 09/04/24 21:45 Nitroglycerin 0.4 mg Q5MINP PRN SL 09/04/24 21:45 Morphine Sulfate 2 mg Q30M PRN IV 09/04/24 21:45 Aspirin 81 mg DAILY PO 09/05/24 10:00 09/05/24 10:27 81 MG Atorvastatin Calcium 20 mg HS PO 09/05/24 22:00 Levothyroxine Sodium 125 mcg QAM@0600 PO 09/06/24 06:00 UNV Levothyroxine Sodium 100 mcg QAM@0600 PO 09/06/24 06:00 Levothyroxine Sodium 25 mcg DAILY@0600 PO 09/06/24 06:00 Examination General examination- bruise noted over the forehead, on the right side of the scalp, on the right fore arm, HEENT- PEERLA, no acute nasal discharge Cardiovascular- S1-S2 audible, rate and rhythm regular, no murmur Respiratory- CTAB, no wheeze or rhonchi Gastrointestinal-nontender, bowel sound+. Nondistended Musculoskeletal-no acute joint swelling or tenderness or redness# Lower extremity- no leg edema Neurological- cranial nerves intact, no acute dysarthria or dysphagia Psychiatry- denies depression or SI or HI Skin- bruise noted over the forehead, on the right side of the scalp, on the right fore arm, laboratory and microbiology Laboratory Tests 09/05/24 05:21 Test 09/05/24 05:21 Range/Units Serum Glucose 85 74-106 mg/dL Problem List/Assessment/Plan Problem List/Assessment/Plan # Mechanical fall, no loss of consciousness -CT head negative for intracranial hemorrhage or infarction -carotid Doppler revealed> 70% stenosis in the left internal carotid artery -ordered CT angio of the head and neck for further evaluation and care -fall precaution -monitor vitals # stenosis of left internal carotid artery carotid Doppler revealed> 70% stenosis in the left internal carotid artery -ordered CT angio of the head and neck for further evaluation and care # history of TIA -carotid Doppler revealed> 70% stenosis in the left internal carotid artery -ordered CT angio of the head and neck for further evaluation and care -continue aspirin 81 mg p.o. daily -Atorvastatin 20 mg p.o. q.h.s. # hypothyroidism -TSH 6.85 -as per caregiver patient had reaction from levothyroxine before -DC Levothyroid for now - # hyperlipidemia -Atorvastatin 20 mg p.o. q.h.s. #? Dementia -patient awake, alert, oriented AAOX3 Goals of care/advance care planning; FULL CODE; discussed with the patient PUD prophylaxis: DVT prophylaxis: Plan discussed with Dr. Wilkinson,,, nursing staff, patient Total time spent on patient evaluation, chart review, assessment and plan, discussion discussion >20 minutes Plan discussed with: Patient Plan discussed with: Patient, Other (RN) My Orders My Orders Orders - CLARISA ORTIZ Procedure Category Date Status Time Angio Head/Neck CT 09/05/24 Logged 12:54 Cleanse Wound With KAREEM 09/05/24 In Process Wound Clean 10:40 * Dietary Consult CONS 09/05/24 Transmitted 14:38 Date of Service: Sep 05, 2024 Billing Provider: JANAE WILKINSON MD Common Visit Codes: [id number] INP/OBS CARE(HIGH) Secondary Visit Codes: [id number] CARE PLAN 30 MINUTES CLARISA ORTIZ Sep 05, 2024 15:23 JANAE WILKINSON MD Sep 05, 2024 20:57
[2024-09-05] MEDS: ENOXAPARIN SOD 40 MG/0.4 ML SYRINGE SC ONE (16:17)
[2024-09-05] MEDS: PANTOPRAZOLE 40 MG TAB PO ONE (16:17)
[2024-09-05 17:04] VITALS: BP 112/56; PULSE 62; RESP 20; TEMP 97.8; O2SAT 92
[2024-09-05 21:00] VITALS: BP 134/66; PULSE 64; RESP 19; TEMP 98.1; O2SAT 96
[2024-09-05] MEDS: ATORVASTATIN 20 MG TAB PO SCH (21:35)
[2024-09-06] MEDS: PANTOPRAZOLE 40 MG TAB PO SCH (05:27)
[2024-09-06] MEDS: HALOPERIDOL LACTATE 5 MG/ML INJ VIAL IV PRN (05:36)
[2024-09-06 05:37] VITALS: BP 139/88; PULSE 138; RESP 19; TEMP 97.5; O2SAT 96
[2024-09-06] MEDS ORDERED: LEVOTHYROXINE SODIUM 25 MCG TAB PO SCH (06:00)
[2024-09-06] MEDS ORDERED: LEVOTHYROXINE SODIUM 100 MCG TAB PO SCH (06:00)
[2024-09-06] MEDS ORDERED: LEVOTHYROXINE SODIUM 50 MCG TAB PO SCH (06:00)
[2024-09-06 06:54] LABS: Basophils # (auto) 0 10 ^3/uL (0-0.2); Basophils % (auto) 0.4 % (0.0-2.0); Eosinophils # (auto) 0 10 ^3/uL (0-0.8); Eosinophils % (auto) 0.2 % (0.0-7.0); Hematocrit 44.5 % (41.0-53.0); Hemoglobin 15.4 g/dL (13.5-17.5); Lymphocytes # (auto) 0.6 10 ^3/uL (0.4-5.4); Lymphocytes % (auto) 8.3 % (10.0-50.0); Mean Corpuscular Hemoglobin 35.1 pg (28.0-32.0); Mean Corpuscular Hgb Conc. 34.5 g/dL (32.0-36.0); Mean Corpuscular Volume 101.6 fL (80.0-100.0); Monocytes # (auto) 0.9 10 ^3/uL (0-1.3); Monocytes % (auto) 12.2 % (0.0-12.0); Neutrophils # (auto) 5.8 10 ^3/uL (1.6-8.6); Neutrophils % (auto) 78.9 % (37.0-80.0); Nucleated Red Blood Cells % 0.1 %; Platelet Count (auto) 215 10^3/uL (140-450); Red Blood Cells 4.38 10^6/uL (4.5-5.90); Red Cell Distribution Width 14.6 % (11.8-14.3); White Blood Cell 7.3 10^3/uL (4.4-10.8)
[2024-09-06 07:25] LABS: Anion Gap 11 (5-15); Carbon Dioxide 20 mmol/L (20-31); Chloride 109 mmol/L (98-107); Potassium 3.8 mmol/L (3.5-5.1); Sodium 140 mmol/L (136-145)
[2024-09-06 07:27] LABS: Calcium 9.4 mg/dL (8.7-10.4)
[2024-09-06 07:31] LABS: BUN/Creatinine Ratio 18.4 (10.0-20.0); Blood Urea Nitrogen 16 mg/dL (9-23)
[2024-09-06 07:37] LABS: Free T3 2.98 pg/mL (2.3-4.2); Free T4 (Free Thyroxine) 0.95 ng/dL (0.89-1.76)
[2024-09-06 07:42] LABS: Glucose 122 mg/dL (74-106)
[2024-09-06 08:00] VITALS: RESP 18
[2024-09-06] MEDS: ENOXAPARIN SOD 40 MG/0.4 ML SYRINGE SC SCH (10:00)
[2024-09-06] MEDS ORDERED: LORazepam 2MG/ML-1ML VIAL IV PRN (10:15)
[2024-09-06] MEDS: LORazepam 2MG/ML-1ML VIAL ONE (10:17)
[2024-09-06] MEDS: LORazepam 2MG/ML-1ML VIAL IV PRN (10:20)
--- NOTE | 2024-09-06 15:33 | DVHPNRES ---
Progress Note Date Seen: Sep 06, 2024 Resident Creating Document: CLARISA ORTIZ RESIDENT Medical Necessity Reason Pt with a Central, PICC or Fol: No Subjective Review of Systems Patient is 89 years old male with past medical history of HLD, TIA, hypothyroidism, ? Dementia was to the ER after a fall at home. As per patient patient woke up from sleep 1 day ago and tripped over and fell and he hit his head. Patient denied losing consciousness. Denied chest pain, shortness of breath, dizziness. Initial blood lab workup revealed BNP 170, troponin I 3, TSH 6.85, serum alcohol level > 3, CT head negative for acute intracranial hemorrhage or infarction. Carotid Doppler revealed > 70% stenosis in the left internal carotid artery. PMH-HLD, TIA,? Dementia PSH- Rt ankle surgery x4, lump removal from right elbow Allergy- NKDA Personal History/ Social History- lives alone, denies smoking/alcohol/other drug abuse Patient was seen today at the bedside. Patient reports doing okay today Cardiovascular- deny acute chest pain or shortness of breath or cough or palpitation Respiratory- denies cough or short of breath or wheezing Gastrointestinal- denies any rectal bleeding, nausea or vomiting Musculoskeletal-denies acute joint swelling or tenderness or redness Neurological- denies acute dysarthria, dysphagia, change in vision Psychiatry- denies depression or SI or HI Skin- denies acute rash or purpura Patient was seen today for clinical evaluation. Labs and chart reviewed. Patient was agitated and aggressive physical and verbal at this morning. Injection Ativan 0.5 mg given. Patient was put on Risperdal 1 mg p.o. b.i.d. patient refused to do CT angio of the head and neck last night and this morning. Ordered urine analysis and microscopic examination for further evaluation and care. Ordered neurology consult for further evaluation and care of the patient. [employer] spoke to patient's caregiver, son Lincoln [phone] discussed patient's current medical condition and plan of care. Both of them agreed with the plan of care. Objective vital signs Vital Sign Date Time Temp Pulse Resp B/P (MAP) Pulse Ox O2 Delivery O2 Flow Rate FiO2 09/06/24 08:00 18 Room Air* 0 21 09/06/24 05:37 97.5 138 139/88 (105) 96 97.5 Total Intake and Output 09/05/24 09/05/24 09/06/24 15:00 23:00 07:00 Intake Total 345 ml 745 ml 0 ml Output Total 200 ml Balance 345 ml 745 ml -200 ml medications Current Medications Medications Dose Ordered Sig/Sarah Route Start Time Stop Time Status Last Admin Dose Admin Ondansetron HCl 4 mg Q4HP PRN IV 09/04/24 21:45 Acetaminophen 650 mg Q6HP PRN PO 09/04/24 21:45 Nitroglycerin 0.4 mg Q5MINP PRN SL 09/04/24 21:45 Morphine Sulfate 2 mg Q30M PRN IV 09/04/24 21:45 Aspirin 81 mg DAILY PO 09/05/24 10:00 09/05/24 10:27 81 MG Atorvastatin Calcium 20 mg HS PO 09/05/24 22:00 09/05/24 21:35 20 MG Levothyroxine Sodium 125 mcg QAM@0600 PO 09/06/24 06:00 UNV Pantoprazole Sodium 40 mg DAILY@0600 PO 09/06/24 06:00 09/06/24 05:27 40 MG Enoxaparin Sodium 40 mg DAILY SC 09/06/24 10:00 Risperidone 1 mg BID PO 09/06/24 22:00 Lorazepam 0.5 mg Q4HPRN PRN IV 09/06/24 12:30 Examination General examination- bruise noted over the forehead, on the right side of the scalp, on the right fore arm, HEENT- PEERLA, no acute nasal discharge Cardiovascular- S1-S2 audible, rate and rhythm regular, no murmur Respiratory- CTAB, no wheeze or rhonchi Gastrointestinal-nontender, bowel sound+. Nondistended Musculoskeletal-no acute joint swelling or tenderness or redness# Lower extremity- no leg edema Neurological- cranial nerves intact, no acute dysarthria or dysphagia Psychiatry- denies depression or SI or HI Skin- bruise noted over the forehead, on the right side of the scalp, on the right fore arm, laboratory and microbiology Laboratory Tests 09/06/24 06:17 Test 09/06/24 06:17 Range/Units Serum Glucose 122 H 74-106 mg/dL Problem List/Assessment/Plan Problem List/Assessment/Plan # agitation -continue risperidone 1 mg p.o. b.i.d. -monitor mental status -[employer] spoke to patient's caregiver, son Lincoln [phone] discussed patient's current medical condition and plan of care. Both of them agreed with the plan of care. # Mechanical fall, no loss of consciousness -CT head negative for intracranial hemorrhage or infarction -carotid Doppler revealed> 70% stenosis in the left internal carotid artery -ordered CT angio of the head and neck for further evaluation and care-patient refused to do CT angio -fall precaution -monitor vitals # stenosis of left internal carotid artery carotid Doppler revealed> 70% stenosis in the left internal carotid artery -ordered CT angio of the head and neck for further evaluation and care-patient refused to do CT angio # Dementia -patient was confused this morning as well as agitated and aggressive # history of TIA -carotid Doppler revealed> 70% stenosis in the left internal carotid artery -orderd CT angio of the head and neck for further evaluation and care-patient refused to do CT angio -continue aspirin 81 mg p.o. daily -Atorvastatin 20 mg p.o. q.h.s. # hypothyroidism -TSH 6.85, F T3 2.98, F T4 0.95 - -as per caregiver patient had reaction from levothyroxine before, patient did not take any levothyroxine in last 3 years -DC Levothyroid for now - # hyperlipidemia -Atorvastatin 20 mg p.o. q.h.s. Goals of care/advance care planning; FULL CODE; discussed with the patient PUD prophylaxis: DVT prophylaxis: Plan discussed with Dr. Wilkinson,,, nursing staff, patient [employer] spoke to patient's caregiver, melvi Stark [phone] discussed patient's current medical condition and plan of care. Both of them agreed with the plan of care. Total time spent on patient evaluation, chart review, assessment and plan, discussion discussion >20 minutes Plan discussed with: Patient Plan discussed with: Patient (RN) My Orders My Orders Orders - CLARISA ORTIZ RESIDENT Procedure Category Date Status Time Pantoprazole Tablet PHA 09/06/24 In Process (Protonix Tablet) 06:00 Enoxaparin Sodium PHA 09/06/24 In Process (Lovenox) 10:00 Angio Head/Neck CT 11/13/24 Logged 09:53 Risperidone Tablet PHA 09/06/24 In Process (Risperdal Tablet) 22:00 * Neurology Consult CONS 09/06/24 Transmitted 10:12 Date of Service: Sep 06, 2024 Billing Provider: JANAE WILKINSON MD Common Visit Codes: [id number] INP/OBS CARE(HIGH) CLARISA ORTIZ RESIDENT Sep 06, 2024 15:33 JANAE WILKINSON MD Sep 09, 2024 04:20
[2024-09-06 20:57] LABS: Urine Bacteria None Seen /hpf (None Seen)
[2024-09-06 21:00] VITALS: BP 116/68; PULSE 89; RESP 18; TEMP 97.9; O2SAT 93
[2024-09-06 21:19] LABS: Amphetamine Screen, Urine Neg (NEGATIVE); Barbiturate Scree,Urine Neg (NEGATIVE); Benzodiazephine Screen, Urine Neg (NEGATIVE); Cannabinoid Screen, Urine Neg (NEGATIVE); Cocaine Screen, Urine Neg (NEGATIVE); Opiate Scree,Urine Neg (NEGATIVE); Phencyclidine Screen, Urine Neg (NEGATIVE)
[2024-09-06 21:33] LABS: Urine Blood 3+ /uL (Negative); Urine Clarity Clear (Clear); Urine Color Yellow (Yellow); Urine Mucus FEW (None Seen); Urine Protein, UAD Negative (Negative); Urine Specific Gravity 1.016 (1.001-1.035); Urine Urobilinogen Normal (Negative); Urine WBC 17 /hpf (0 - 3); Urine pH 5.5 (5.0-9.0)
--- NOTE | 2024-09-06 22:11 | DVHINCON2 ---
Date of service: Sep 06, 2024 Referring Physician Samanta Burciaga Reason for Consultation Agitation, fall, combative History of Present Illness Mr. Lindsey is a 89 years old right-handed gentleman with a history of dyslipidemia, bradycardia, glaucoma, macular degeneration, right eye blindness, arthritis, the patient came to the hospital on09/04/24 with a chief complaint of fall injury. At that time, he was awake, oriented to himself only, not able to provide history I saw him on 12/03/2022 for "rule out stroke" He has a history of cognitive dysfunction, that will be further described, in the morning on 09/06/2024, with the patient was in his room, he become agitated, combative, and stephanie felder was called on him, happened to be close to his room, and with the his behavior difficulty, I have discussed with Dr. Wilkinson about his problems/symptoms According to my reports dated 12/03/2022, the patient had progressive short-term memory difficulty since [id number], meanwhile he also had intermittent visual hallucination where he saw nonexisting creatures all persons, typically towards the late afternoon or in the evening. At that time, he did not have bowel control problems or gait disturbance, he was seen by Lorenzo Saini neurologist at that time, ER note mentioned in the history of TIA [phone], no answer, no answer, , no answer [id number] RPR, 12/03/2022: Nonreactive UDS, 09/06/2024: Negative Plasma alcohol, 09/04/2024: < 3 Urinalysis, 09/06/2024: WBC: 17, urine leukocyte esterase: Negative WBC/HB/PLT/MCV, 09/06/2024: 7.3/15.4/215/101.6 CRP, 09/05/2024: Unremarkable TG/CHO L/LDL/HDL, 11/2022: 72/109/56/50, 09/05/2024: 80/126/69/42 Vitamin B12, 11/2022: 227, 08/2024: 249 Folic acid, 11/2022: 7.82, 08/2024: 33.25 TSH, 12/02/22: 5.61, 12/03/22: 2.06, 08/2024: 6.85 Doppler, 09/04/2024: 1. No hemodynamically significant stenosis noted in the right carotid system. 2. Greater 70% stenosis of the left internal carotid CT head, 12/02/2022: No intracranial hemorrhage. MRI is recommended if clinical symptoms persist CT head, 09/04/2024: No acute intracranial abnormality MRI headache, 12/03/2022: There is chronic tiny right posterior frontal cortical infarct There is no acute infarct. There is no hemorrhage. Past Medical History Dyslipidemia, bradycardia, glaucoma, macular degeneration, right eye blindness, arthritis Past Surgical History Right eye surgery, loop recorder implantation, ankle and knee surgeries Family History: Patient reports no known family medical history. Family History Heart attack, no dementia Social History He is not a tobacco smoker, no history of drug, alcohol use Allergies: Coded Allergies: NO KNOWN ALLERGIES (Unverified , 04/04/21) Home Meds Reported Medications Brimonidine Tartrate (Alphagan P) 0.1 % Aimee, 1 DROP RIGHTEYE TID for 90 Days, #15 09/06/24 Dorzolamide-Timolol (Dorzolamide Hcl/Timolol M) 1 Ml Aimee, 1 DROP EACHEYE BID for 50 Days, #10 12/04/22 Latanoprost (LATANOPROST) 0.005 % Aimee, 1 DROP RIGHTEYE HS for 50 Days, #2.5 12/04/22 Levothyroxine Sodium (Levothyroxine Sodium) 175 Mcg Tab, 0.75 TAB PO DAILY 12/02/22 Aspirin (Aspirin Low Dose) 81 Mg Tab, 1 TAB PO DAILY for 90 Days, #90 12/02/22 Atorvastatin Calcium (ATORVASTATIN CALCIUM) 10 Mg Tab, 1 TAB PO DAILY for 90 Days, #90 12/02/22 Discontinued Reported Medications Brimonidine Tartrate (ALPHAGAN P 0.15% OPTHALMIC) [address], 1 DROP EACHEYE 12/04/22 Current Medications Current Medications Medications (Trade) Dose Ordered Sig/Sarah Route PRN Reason Start Time Stop Time Status Last Admin Atorvastatin Calcium (Lipitor) 20 mg HS PO 09/05/24 22:00 09/05/24 21:35 Levothyroxine Sodium (Synthroid Tablet) 125 mcg QAM@0600 PO 09/06/24 06:00 UNV Levothyroxine Sodium (Synthroid Tablet) 100 mcg QAM@0600 PO 09/06/24 06:00 09/05/24 15:49 DC Levothyroxine Sodium (Synthroid Tablet) 25 mcg DAILY@0600 PO 09/06/24 06:00 09/05/24 15:49 DC Pantoprazole Sodium (Protonix Tablet) 40 mg DAILY@0600 PO 09/06/24 06:00 09/06/24 05:27 Enoxaparin Sodium (Lovenox) 40 mg DAILY SC 09/06/24 10:00 Haloperidol Lactate (Haldol) 5 mg Q8HP PRN IV AGITATION 09/06/24 05:30 09/06/24 06:43 DC 09/06/24 05:36 Lorazepam (Ativan Inj) 0.5 mg PRN PRN IV ANXIETY 09/06/24 10:15 09/06/24 12:18 DC Risperidone (RisperDAL TABLET) 1 mg ONCE STAT PO 09/06/24 10:09 09/06/24 10:30 DC Risperidone (RisperDAL TABLET) 1 mg BID PO 09/06/24 22:00 Lorazepam (Ativan Inj) 0.5 mg Q4HPRN PRN IV ANXIETY 09/06/24 12:30 Review of Systems As above, the other system negative Vital Signs Vital Signs Date Time Temp Pulse Resp B/P (MAP) Pulse Ox O2 Delivery O2 Flow Rate FiO2 09/06/24 08:00 18 Room Air* 0 21 09/06/24 05:37 97.5 138 139/88 (105) 96 97.5 Physical Exam GENERAL EXAM: General: the patient is well developed and nourished. No acute distress. HEENT: Normocephalic, neck is supple, no carotid bruits. No mass RESPIRATORY: Normal respiratory effort with symmetrical lung expansion. Lungs clear to auscultation. CARDIOVASCULAR: Regular rate and rhythm with no murmurs. S1, S2. ABDOMEN: Soft, nontender, normal bowel sound NEUROLOGICAL: MENTAL STATUS: Awake and alert. Oriented to person, place. Poor historian SPEECH, LANGUAGE, HIGHER CORTICAL FUNCTION: no aphasia or dysathria. CRANIAL NERVES: #2: Intact visual weston to confrontation. #3,4,6: Pupils are reactive, right surgical pupil. EOMs full and conjugate. No nystagmus. #5: Facial sensation intact in all three divisions bilaterally. Mandibular strength intact. #7: Facial muscles symmetrical and strength intact. #8: Hearing grossly normal to voice. #9,10: Uvula and soft palate rise in the midline. Swallow and voice are normal. #11: Trapezius and sternomastoid strength intact bilaterally. #12: Tongue midline. No fasciculations or atrophy. SENSATION: Sensation to touch and pinprick is normal. MOTOR: Normal tone in the upper and lower extremity. Mild bilateral intrinsic hand muscle atrophy. No abnormal movements or posturing. Muscle strength of the major groups in the upper extremities is 5/5. Muscle strength of the major groups in the lower extremities is 5/5. REFLEXES: Deep tendon reflexes are symmetrical. No pathological reflexes. CEREBELLAR/COORDINATION: Finger to nose is normal bilaterally. GAIT/STATION: deferred Labs/Diagnostic Data Labs Test 09/06/24 20:56 09/06/24 06:17 09/05/24 05:21 09/04/24 22:52 Range/Units Urine Color Yellow Yellow Urine Clarity Clear Clear Urine pH 5.5 5.0-9.0 Urine Specific [place] 1.016 1.001-1.035 Urine Protein Negative Negative Urine Ketones 2+ H Negative Urine Blood 3+ H Negative /uL Urine Nitrite Negative Negative Urine Bilirubin Negative Negative Urine Urobilinogen Normal Negative mg/dL Urine Leukocyte Esterase Negative Negative /uL Urine RBC 360 0 - 3 /hpf Urine WBC 17 0 - 3 /hpf Urine Squamous Epithelial Cells Few <5 /hpf Urine Bacteria None seen None Seen /hpf Urine Mucus Few None Seen Urine Glucose Normal Normal mg/dL Urine Opiates Screen Neg NEGATIVE Urine Fentanyl Screen Neg NEGATIVE Urine Barbiturates Screen Neg NEGATIVE Urine Phencyclidine Screen Neg NEGATIVE Urine Amphetamines Screen Neg NEGATIVE Urine Benzodiazepines Screen Neg NEGATIVE Urine Cocaine Screen Neg NEGATIVE Urine Cannabinoids Screen Neg NEGATIVE White Blood Count 7.3 # 4.4-10.8 10^3/uL Red Blood Count 4.38 L 4.5-5.90 10^6/uL Hemoglobin 15.4 13.5-17.5 g/dL Hematocrit 44.5 41.0-53.0 % Mean Corpuscular Volume 101.6 H 80.0-100.0 fL Mean Corpuscular Hemoglobin 35.1 H 28.0-32.0 pg Mean Corpuscular Hemoglobin Concent 34.5 32.0-36.0 g/dL Red Cell Distribution Width 14.6 H 11.8-14.3 % Platelet Count 215 140-450 10^3/uL Mean Platelet Volume 7.9 6.9-10.8 fL Neutrophils (%) (Auto) 78.9 37.0-80.0 % Lymphocytes (%) (Auto) 8.3 L 10.0-50.0 % Monocytes (%) (Auto) 12.2 H 0.0-12.0 % Eosinophils (%) (Auto) 0.2 0.0-7.0 % Basophils (%) (Auto) 0.4 0.0-2.0 % Neutrophils # (Auto) 5.8 1.6-8.6 10 ^3/uL Lymphocytes # (Auto) 0.6 0.4-5.4 10 ^3/uL Monocytes # (Auto) 0.9 0-1.3 10 ^3/uL Eosinophils # (Auto) 0 0-0.8 10 ^3/uL Basophils # (Auto) 0 0-0.2 10 ^3/uL Nucleated Red Blood Cells 0.1 % Sodium Level 140 136-145 mmol/L Potassium Level 3.8 3.5-5.1 mmol/L Chloride Level 109 H 98-107 mmol/L Carbon Dioxide Level 20 20-31 mmol/L Anion Gap 11 5-15 Blood Urea Nitrogen 16 9-23 mg/dL Creatinine 0.87 0.700-1.30 mg/dL Glomerular Filtration Rate Calc 83 >90 mL/min BUN/Creatinine Ratio 18.4 10.0-20.0 Serum Glucose 122 H 74-106 mg/dL Calcium Level 9.4 8.7-10.4 mg/dL Free Thyroxine (T4) Calculated 0.95 0.89-1.76 ng/dL Free Triiodothyronine (T3) pg/mL 2.98 2.3-4.2 pg/mL Total Bilirubin 1.0 0.2-1.0 mg/dL Aspartate Amino Transferase (AST) 22 13-40 U/L Alanine Aminotransferase (ALT) 18 7-40 U/L Alkaline Phosphatase 76 46-116 U/L Total Protein 6.1 5.7-8.2 g/dL Albumin 3.6 3.2-4.8 g/dL Triglycerides Level 80 < 150 mg/dL Cholesterol Level 126 < 200 mg/dL LDL Cholesterol 69 < 100 mg/dL HDL Cholesterol 42 40-59 mg/dL Vitamin B12 Level 249 211-911 pg/mL Vitamin D 25-Hydroxy 48.9 30.0-100 ng/mL Folic Acid 33.25 >5.38 ng/mL Plasma/Serum Blood Alcohol < 3.0 <10 mg/dL Test 09/04/24 20:37 09/04/24 14:22 09/04/24 14:20 Range/Units Prothrombin Time 10.7 9.3-11.8 sec Prothrombin Time INR 1.01 0.9-1.15 Activated Partial Thromboplast Time 23.1 L 24.5-34.5 SEC Hemoglobin A1c 5.3 <5.7 % A1C Troponin I High Sensitivity 3 L </=54 ng/L Thyroid Stimulating Hormone (TSH) 6.85 H 0.55-4.78 uIU/mL B-Type Natriuretic Peptide 170.59 0-100 pg/mL Assessment Agitation, like the patient was has metabolic encephalopathy/hospital delirium Cognitive dysfunction, he likely has dementia Carotid stenosis per carotid Doppler Low vitamin B12 History of TIA per ER note Plan/Recommendation Monitoring Supportive treatment Telemetry Sitter in the room MRI brain Aspirin 81 mg daily Lipitor 20 mg daily Vitamin B12 supplementation DVT prophylaxis/SCD Up to chair Physical therapy Room bright during the daytime More recommendation per clinical course This medical document was created using an electronic medical record system with [employer] dictation system. Although this document has been carefully reviewed, there may still be some phonetic and typographical errors. These areas are purely typographical due to imperfections of the software programs, and do not reflect any compromise in the patient's medical care. Plan discussed with: Other KIMBERLEY MATAMOROS MD Sep 06, 2024 22:11
[2024-09-06] MEDS: CYANOCOBALAMIN (B-12) 1000 MCG/1 ML VIAL IM ONE (23:24)
[2024-09-06] MEDS: risperiDONE 1 MG TAB PO SCH (23:25)
[2024-09-07] VITALS (7 sets, daily range): BP systolic 105–124; BP diastolic 52–65; PULSE 49–98; RESP 17–19; TEMP 97.3–97.9; O2SAT 92–97
[2024-09-07 06:35] LABS: Basophils # (auto) 0 10 ^3/uL (0-0.2); Eosinophils # (auto) 0.1 10 ^3/uL (0-0.8); Eosinophils % (auto) 1.6 % (0.0-7.0); Hemoglobin 12.9 g/dL (13.5-17.5); Neutrophils # (auto) 3.2 10 ^3/uL (1.6-8.6); Nucleated Red Blood Cells % 0.3 %
[2024-09-07 06:38] LABS: Basophils % (auto) 0.2 % (0.0-2.0); Hematocrit 38.1 % (41.0-53.0); Lymphocytes % (auto) 18.5 % (10.0-50.0); Mean Corpuscular Hgb Conc. 33.9 g/dL (32.0-36.0); Mean Corpuscular Volume 103.4 fL (80.0-100.0); Monocytes # (auto) 0.9 10 ^3/uL (0-1.3); Monocytes % (auto) 17.1 % (0.0-12.0); Neutrophils % (auto) 62.6 % (37.0-80.0); Platelet Count (auto) 185 10^3/uL (140-450); Red Blood Cells 3.69 10^6/uL (4.5-5.90); Red Cell Distribution Width 14.4 % (11.8-14.3); White Blood Cell 5.2 10^3/uL (4.4-10.8)
[2024-09-07 06:39] LABS: Anion Gap 11 (5-15); Calcium 8.9 mg/dL (8.7-10.4); Carbon Dioxide 20 mmol/L (20-31); Chloride 111 mmol/L (98-107); Potassium 3.6 mmol/L (3.5-5.1); Sodium 142 mmol/L (136-145)
[2024-09-07 06:45] LABS: BUN/Creatinine Ratio 23.8 (10.0-20.0); Blood Urea Nitrogen 15 mg/dL (9-23); Glucose 77 mg/dL (74-106)
[2024-09-07] MEDS: CYANOCOBALAMIN 500 MCG TAB PO SCH (09:03)
[2024-09-07] MEDS: risperiDONE 1 MG TAB PO STA (09:03)
--- NOTE | 2024-09-07 10:51 | DVHPN2 ---
Progress Note - Dictate Date Seen: Sep 07, 2024 Medical Necessity Reason Pt with a Central, PICC or Fol: No Subjective Mr. Lindsey is a 89 years old right-handed gentleman with a history of dyslipidemia, bradycardia, glaucoma, macular degeneration, right eye blindness, arthritis, the patient came to the hospital on09/04/24 with a chief complaint of fall injury. I saw him on 12/03/2022 for "rule out stroke" Have seen and examined the patient, I have discussed with his nurse and other medical staff, in the room. He was awake, oriented to person, place, he knows year and the month, he may not remember what happened yesterday morning I have discussed with his , he confirm slowly progressive short-term memory difficulty for four years. There is no family history of dementia, he was not on dementia treatment I have discussed with her about the patient's low vitamin B12 RPR, 12/03/2022: Nonreactive UDS, 09/06/2024: Negative Plasma alcohol, 09/04/2024: < 3 Urinalysis, 09/06/2024: WBC: 17, urine leukocyte esterase: Negative WBC/HB/PLT/MCV, 09/06/2024: 7.3/15.4/215/101.6 CRP, 09/05/2024: Unremarkable TG/CHO L/LDL/HDL, 11/2022: 72/109/56/50, 09/05/2024: 80/126/69/42 Vitamin B12, 11/2022: 227, 08/2024: 249 Folic acid, 11/2022: 7.82, 08/2024: 33.25 TSH, 12/02/22: 5.61, 12/03/22: 2.06, 08/2024: 6.85 Echocardiogram, 12/03/2022: Technically good study. Off axis views. Concentric LVH. RV enlargement and left atrial enlargement. Sigmoid septum. Valves are normal. EF of 60%. Normal RV function. Mild TR. No pericardial effusion masses or vegetations discernible Doppler, 09/04/2024: 1. No hemodynamically significant stenosis noted in the right carotid system. 2. Greater 70% stenosis of the left internal carotid CT head, 12/02/2022: No intracranial hemorrhage. MRI is recommended if clinical symptoms persist CT head, 09/04/2024: No acute intracranial abnormality MRI headache, 12/03/2022: There is chronic tiny right posterior frontal cortical infarct There is no acute infarct. There is no hemorrhage. vital signs Vital Sign Date Time Temp Pulse Resp B/P (MAP) Pulse Ox O2 Delivery O2 Flow Rate FiO2 09/07/24 09:00 97.6 97 18 108/63 (78) 93 97.6 09/07/24 08:30 Room Air* 0 21 Total Intake and Output 09/06/24 09/06/24 09/07/24 15:00 23:00 07:00 Intake Total 400 ml 400 ml Balance 400 ml 400 ml medications Current Medications Medications Dose Ordered Sig/Sarah Route Start Time Stop Time Status Last Admin Dose Admin Ondansetron HCl 4 mg Q4HP PRN IV 09/04/24 21:45 Acetaminophen 650 mg Q6HP PRN PO 09/04/24 21:45 Nitroglycerin 0.4 mg Q5MINP PRN SL 09/04/24 21:45 Morphine Sulfate 2 mg Q30M PRN IV 09/04/24 21:45 Aspirin 81 mg DAILY PO 09/05/24 10:00 09/07/24 09:03 81 MG Atorvastatin Calcium 20 mg HS PO 09/05/24 22:00 09/06/24 23:25 20 MG Levothyroxine Sodium 125 mcg QAM@0600 PO 09/06/24 06:00 UNV Pantoprazole Sodium 40 mg DAILY@0600 PO 09/06/24 06:00 09/07/24 06:41 40 MG Enoxaparin Sodium 40 mg DAILY SC 09/06/24 10:00 09/07/24 09:03 40 MG Risperidone 1 mg BID PO 09/06/24 22:00 09/07/24 09:03 1 MG Lorazepam 0.5 mg Q4HPRN PRN IV 09/06/24 12:30 Cyanocobalamin 500 mcg DAILY PO 09/07/24 10:00 09/07/24 09:03 500 MCG objective General: the patient is well developed and nourished. No acute distress. MENTAL STATUS: Awake and alert. Oriented to person, place. Poor historian SPEECH, LANGUAGE, HIGHER CORTICAL FUNCTION: no aphasia or dysathria. CRANIAL NERVES: Right eye blind, can only see at specific ankle. Pupils are reactive, right surgical pupil. EOMs full and conjugate. No nystagmus. Facial sensation intact in all three divisions bilaterally. Mandibular strength intact. Facial muscles symmetrical and strength intact. SENSATION: Sensation to touch and pinprick is normal. MOTOR: Normal tone in the upper and lower extremity. Mild bilateral intrinsic hand muscle atrophy. No abnormal movements or posturing. Muscle strength of the major groups in the extremities is 5/5. REFLEXES: Deep tendon reflexes are symmetrical. No pathological reflexes. CEREBELLAR/COORDINATION: Finger to nose is normal bilaterally. GAIT/STATION: deferred laboratory and microbiology Laboratory Tests 09/07/24 05:11 Test 09/07/24 05:11 Range/Units Serum Glucose 77 74-106 mg/dL Problem List Agitation, like the patient was has metabolic encephalopathy/hospital delirium Cognitive dysfunction, he likely has dementia Carotid stenosis per carotid Doppler Low vitamin B12 Chronic stroke per MR brain scan dated 12/03/2022 Assessment/Plan Monitoring Supportive treatment Telemetry Sitter in the room MRI brain Aspirin 81 mg daily Lipitor 20 mg daily Vitamin B12 supplementation DVT prophylaxis/SCD Up to chair Physical therapy Room bright during the daytime More recommendation per clinical course This medical document was created using an electronic medical record system with [employer] computerized dictation system. Although this document has been carefully reviewed, there may still be some phonetic and typographical errors. These areas are purely typographical due to imperfections of the software programs, and do not reflect any compromise in the patient's medical care. Prognosis poor Plan discussed with: Spouse, Other Total Time (mins): 40 KIMBERLEY MATAMOROS MD Sep 07, 2024 10:51
--- NOTE | 2024-09-07 11:06 | DVH ---
EXAM: MRI BRAIN HEAD WO CONTRAST HISTORY: CVA COMPARISON: CT HEAD WITHOUT CONTRAST on DOS: 09/04/24, BRAIN HEAD WO CONTRAST on DOS: 12/03/22, HEAD WI THOUT CONTRAST on DOS: 12/02/22 TECHNIQUE: MRI was performed utilizing multiple appropriate imaging planes and pulse sequences. FINDINGS: SUPRATENTORIAL REGION: No evidence for acute ischemia or intracranial hemorrhage. Scattered ill-defi michael FLAIR hyperintensities are noted within the bilateral periventricular region, prado radiata and subcortical white matter. POSTERIOR FOSSA: Unremarkable. BRAINSTEM: Unremarkable. SELLAR/SUPRASELLAR REGION: Unremarkable. VENTRICLES, CISTERNS, SULCI: Age-appropriate. ORBITS: Unremarkable. PARANASAL SINUSES: Mild diffuse paranasal sinus mucosal thickening. A small mucous retention cyst no sheila in the left sphenoid sinus. MASTOID AIR CELLS: Unremarkable. VASCULATURE: Unremarkable. BONES/ SOFT TISSUES: Unremarkable. OTHER: None. IMPRESSION: 1. No acute intracranial process identified. 2. Mild global cortical atrophy and stable mild chronic microvascular ischemic changes. 3. Chronic mild paranasal sinus disease.
--- NOTE | 2024-09-07 15:14 | DVH ---
INDICATION: H/O TIA COMPARISON: None TECHNIQUE: CTA head without and with intravenous contrast. CTA neck with intravenous contrast. 3D image postprocessing was performed on a dedicated workstation and images were used for interpretation and reporting. Radiation Dose Information: CT Dose: CTDI volume is 23.29 mGy. Dose-length product is 984.08 mGy*cm FINDINGS: CT head: There is no evidence of acute intracranial hemorrhage, extra-axial collection, mass effect, midline s hift, herniation or hydrocephalus. The ventricles, sulci and cisterns are age appropriate. The felder -white differentiation is intact. The visualized paranasal sinuses and mastoid air cells are clear. The surrounding soft tissues and osseous structures are unremarkable. CTA head: There is normal enhancement of the visualized distal internal carotid, anterior and middle cerebral a rteries. There is a normal anterior communicating artery complex. There are bilateral posterior com municating arteries. The vertebral, basilar, cerebellar and posterior cerebral arteries are within n ormal limits. The early parenchymal enhancement is grossly unremarkable. The visualized intracrania l venous structures are grossly unremarkable. CTA neck: The visualized thoracic aortic arch and proximal great vessels are unremarkable. Less than 50% stenosis of the left proximal internal carotid artery secondary to atherosclerotic plaq ue. 50% short-segment stenosis of the proximal right internal carotid artery secondary to atherosclerotic plaque. The cervical segments of the right and left vertebral arteries are within normal limits. Right verteb ral artery appears to terminate at the level of PICA (normal variant ). The limited visualized lung apices are clear. Multilevel degenerative changes of the spine. IMPRESSION: No evidence of hemodynamically significant intracranial stenosis, proximal occlusion or aneurysm. Less than 50% stenosis of the left proximal internal carotid artery secondary to atherosclerotic plaq ue. 50% short-segment stenosis of the proximal right internal carotid artery secondary to atherosclerotic plaque. All CT scans at this medical facility are performed using dose modulation techniques as appropriate t o a performed exam including the following: Automated exposure control was utilized; adjustment of th e MA and/or KV according to patient size; and use of iterative reconstruction technique.
--- NOTE | 2024-09-07 16:06 | DVHDSRES ---
Discharge Summary Date of Admission Resident Creating Document: CLARISA ORTIZ Sep 04, 2024 at 21:44 Date of Discharge: Sep 07, 2024 Admitting Diagnosis Fall Labs/Diagnostic Data: Laboratory Results Test 09/07/24 05:11 09/06/24 20:56 09/06/24 06:17 09/05/24 05:21 White Blood Count 5.2 10^3/uL (4.4-10.8) Red Blood Count 3.69 10^6/uL (4.5-5.90) Hemoglobin 12.9 g/dL (13.5-17.5) Hematocrit 38.1 % (41.0-53.0) Mean Corpuscular Volume 103.4 fL (80.0-100.0) Mean Corpuscular Hemoglobin 35.0 pg (28.0-32.0) Mean Corpuscular Hemoglobin Concent 33.9 g/dL (32.0-36.0) Red Cell Distribution Width 14.4 % (11.8-14.3) Platelet Count 185 10^3/uL (140-450) Mean Platelet Volume 8.1 fL (6.9-10.8) Neutrophils (%) (Auto) 62.6 % (37.0-80.0) Lymphocytes (%) (Auto) 18.5 % (10.0-50.0) Monocytes (%) (Auto) 17.1 % (0.0-12.0) Eosinophils (%) (Auto) 1.6 % (0.0-7.0) Basophils (%) (Auto) 0.2 % (0.0-2.0) Neutrophils # (Auto) 3.2 10 ^3/uL (1.6-8.6) Lymphocytes # (Auto) 1.0 10 ^3/uL (0.4-5.4) Monocytes # (Auto) 0.9 10 ^3/uL (0-1.3) Eosinophils # (Auto) 0.1 10 ^3/uL (0-0.8) Basophils # (Auto) 0 10 ^3/uL (0-0.2) Nucleated Red Blood Cells 0.3 % Sodium Level 142 mmol/L (136-145) Potassium Level 3.6 mmol/L (3.5-5.1) Chloride Level 111 mmol/L (98-107) Carbon Dioxide Level 20 mmol/L (20-31) Anion Gap 11 (5-15) Blood Urea Nitrogen 15 mg/dL (9-23) Creatinine 0.63 mg/dL (0.700-1.30) Glomerular Filtration Rate Calc 91 mL/min (>90) BUN/Creatinine Ratio 23.8 (10.0-20.0) Serum Glucose 77 mg/dL (74-106) Calcium Level 8.9 mg/dL (8.7-10.4) Urine Color Yellow (Yellow) Urine Clarity Clear (Clear) Urine pH 5.5 (5.0-9.0) Urine Specific [place] 1.016 (1.001-1.035) Urine Protein Negative (Negative) Urine Ketones 2+ (Negative) Urine Blood 3+ /uL (Negative) Urine Nitrite Negative (Negative) Urine Bilirubin Negative (Negative) Urine Urobilinogen Normal mg/dL (Negative) Urine Leukocyte Esterase Negative /uL (Negative) Urine RBC 360 /hpf (0 - 3) Urine WBC 17 /hpf (0 - 3) Urine Squamous Epithelial Cells Few /hpf (<5) Urine Bacteria None seen /hpf (None Seen) Urine Mucus Few (None Seen) Urine Glucose Normal mg/dL (Normal) Urine Opiates Screen Neg (NEGATIVE) Urine Fentanyl Screen Neg (NEGATIVE) Urine Barbiturates Screen Neg (NEGATIVE) Urine Phencyclidine Screen Neg (NEGATIVE) Urine Amphetamines Screen Neg (NEGATIVE) Urine Benzodiazepines Screen Neg (NEGATIVE) Urine Cocaine Screen Neg (NEGATIVE) Urine Cannabinoids Screen Neg (NEGATIVE) Free Thyroxine (T4) Calculated 0.95 ng/dL (0.89-1.76) Free Triiodothyronine (T3) pg/mL 2.98 pg/mL (2.3-4.2) Total Bilirubin 1.0 mg/dL (0.2-1.0) Aspartate Amino Transferase (AST) 22 U/L (13-40) Alanine Aminotransferase (ALT) 18 U/L (7-40) Alkaline Phosphatase 76 U/L (46-116) Total Protein 6.1 g/dL (5.7-8.2) Albumin 3.6 g/dL (3.2-4.8) Triglycerides Level 80 mg/dL (< 150) Cholesterol Level 126 mg/dL (< 200) LDL Cholesterol 69 mg/dL (< 100) HDL Cholesterol 42 mg/dL (40-59) Test 09/04/24 22:52 09/04/24 20:37 09/04/24 14:22 09/04/24 14:20 Vitamin B12 Level 249 pg/mL (211-911) Vitamin D 25-Hydroxy 48.9 ng/mL (30.0-100) Folic Acid 33.25 ng/mL (>5.38) Plasma/Serum Blood Alcohol < 3.0 mg/dL (<10) Prothrombin Time 10.7 sec (9.3-11.8) Prothrombin Time INR 1.01 (0.9-1.15) Activated Partial Thromboplast Time 23.1 SEC (24.5-34.5) Hemoglobin A1c 5.3 % A1C (<5.7) Troponin I High Sensitivity 3 ng/L (</=54) Thyroid Stimulating Hormone (TSH) 6.85 uIU/mL (0.55-4.78) B-Type Natriuretic Peptide 170.59 pg/mL (0-100) Other Laboratory Tests 09/07/24 05:11 Brief Hx & Hospital Course: Patient is 89 years old male with past medical history of HLD, TIA, hypothyroidism, ? Dementia was to the ER after a fall at home. As per patient patient woke up from sleep 1 day ago and tripped over and fell and he hit his head. Patient denied losing consciousness. Denied chest pain, shortness of breath, dizziness. Initial blood lab workup revealed BNP 170, troponin I 3, TSH 6.85, serum alcohol level > 3, CT head negative for acute intracranial hemorrhage or infarction. Carotid Doppler revealed > 70% stenosis in the left internal carotid artery. PMH-HLD, TIA,? Dementia PSH- Rt ankle surgery x4, lump removal from right elbow Allergy- NKDA Personal History/ Social History- lives alone, denies smoking/alcohol/other drug abuse Patient was seen today at the bedside. Patient reports doing okay today Cardiovascular- deny acute chest pain or shortness of breath or cough or palpitation Respiratory- denies cough or short of breath or wheezing Gastrointestinal- denies any rectal bleeding, nausea or vomiting Musculoskeletal-denies acute joint swelling or tenderness or redness Neurological- denies acute dysarthria, dysphagia, change in vision Psychiatry- denies depression or SI or HI Skin- denies acute rash or purpura Patient was seen today for clinical evaluation. Labs and chart reviewed. Patient was agitated and aggressive physical and verbal at this morning. Injection Ativan 0.5 mg given. Patient was put on Risperdal 1 mg p.o. b.i.d. patient refused to do CT angio of the head and neck last night and this morning. Ordered urine analysis and microscopic examination for further evaluation and care. Ordered neurology consult for further evaluation and care of the patient. Binder Coverstitch spoke to patient's caregiver, son Lincoln [phone] discussed patient's current medical condition and plan of care. Both of them agreed with the plan of care. Condition at Discharge: Stable Final Diagnosis/Problems List Fall Laceration of the face and right-sided scalp Hesitation likely due to hospital dementia Dementia History of TIA Hyperlipidemia Hypothyroidism-needs to re-evaluate with the primary care physician to restart levothyroxine as patient had a history of rash or drug reaction Hyperlipidemia Discharge Disposition: Home Discharge Instruct/Medications Diet: Regular Activity: Light activity Follow Up/Referral: Please follow up with the primary care physician in 1 week Also follow up with the psychiatrist after getting a referral from your primary care physician for further evaluation and care of the dementia Medications: Seroquel as prescribed Cyanocobalamin as prescribed Discharge Statement: "Patient was advised to return to the ER or call 911 if any headaches, dizziness, shortness of breath, chest pain, abdominal pain, bleeding, fevers, or worsening of medical condition. Patient was counseled about treatment plan, medications, possible side effects, patientverbalized understanding. All questions were answered to the best of my ability. This discharge took greater then 30 minutes in planning, reviewing documentation, counseling the patient, and discussing with other team members." ASSESSMENT ASSESSMENT Assessment CLARISA ORTIZ RESIDENT Sep 07, 2024 16:06
--- NOTE | 2024-09-07 16:25 | DVHPNRES ---
Progress Note Date Seen: Sep 07, 2024 Resident Creating Document: CLARISA ORTIZ RESIDENT Medical Necessity Reason Pt with a Central, PICC or Fol: No Subjective Review of Systems Patient is 89 years old male with past medical history of HLD, TIA, hypothyroidism, ? Dementia was to the ER after a fall at home. As per patient patient woke up from sleep 1 day ago and tripped over and fell and he hit his head. Patient denied losing consciousness. Denied chest pain, shortness of breath, dizziness. Initial blood lab workup revealed BNP 170, troponin I 3, TSH 6.85, serum alcohol level > 3, CT head negative for acute intracranial hemorrhage or infarction. Carotid Doppler revealed > 70% stenosis in the left internal carotid artery. MRI of the brain revealed-No acute intracranial process identified. Mild global cortical atrophy and stable mild chronic microvascular ischemic changes. Chronic mild paranasal sinus disease. CT angio of the head and neck revealed-No evidence of hemodynamically significant intracranial stenosis, proximal occlusion or aneurysm, Less than 50% stenosis of the left and Right proximal internal carotid artery secondary to atherosclerotic plaque. PMH-HLD, TIA,? Dementia PSH- Rt ankle surgery x4, lump removal from right elbow Allergy- NKDA Personal History/ Social History- lives alone, denies smoking/alcohol/other drug abuse Patient was seen today at the bedside. Patient reports doing okay today Cardiovascular- deny acute chest pain or shortness of breath or cough or palpitation Respiratory- denies cough or short of breath or wheezing Gastrointestinal- denies any rectal bleeding, nausea or vomiting Musculoskeletal-denies acute joint swelling or tenderness or redness Neurological- denies acute dysarthria, dysphagia, change in vision Psychiatry- denies depression or SI or HI Skin- denies acute rash or purpura Patient was seen today for clinical evaluation. Labs and chart reviewed. Patient is more calm and quiet today. Patient was seen by Neurology, recommendations reviewed and appreciated. New G recommended MRI of the brain which revealed-No acute intracranial process identified. Mild global cortical atrophy and stable mild chronic microvascular ischemic changes. Chronic mild paranasal sinus disease. CT angio of the head and neck revealed-No evidence of hemodynamically significant intracranial stenosis, proximal occlusion or aneurysm, Less than 50% stenosis of the left and Right proximal internal carotid artery secondary to atherosclerotic plaque. Plan is to discharge patient on Seroquel 25 mg p.o. q.h.s.. Stereotyper Helper spoke to patient's caregiver, son Lincoln [phone] discussed patient's current medical condition and plan of care. Stereotyper Helper discussed about having a 17/05 caregiver for the patient or placing the patient into a assisted living facility. Stereotyper Helper also discussed about the restarting levothyroxine for elevated TSH. As per caregiver patient had recurrent reaction to the levothyroxine with a different brands. Nothing kept him out of reaction. Patient's caregiver was advised to follow up with the primary care physician regarding restarting levothyroxine and monitoring side effects. Both of them agreed with the plan of care. Objective vital signs Vital Sign Date Time Temp Pulse Resp B/P (MAP) Pulse Ox O2 Delivery O2 Flow Rate FiO2 09/07/24 13:00 97.6 49 17 105/52 (69) 93 97.6 09/07/24 08:30 Room Air* 0 21 Total Intake and Output 09/06/24 09/06/24 09/07/24 15:00 23:00 07:00 Intake Total 400 ml 400 ml Balance 400 ml 400 ml medications Current Medications Medications Dose Ordered Sig/Sarah Route Start Time Stop Time Status Last Admin Dose Admin Ondansetron HCl 4 mg Q4HP PRN IV 09/04/24 21:45 Acetaminophen 650 mg Q6HP PRN PO 09/04/24 21:45 Nitroglycerin 0.4 mg Q5MINP PRN SL 09/04/24 21:45 Morphine Sulfate 2 mg Q30M PRN IV 09/04/24 21:45 Aspirin 81 mg DAILY PO 09/05/24 10:00 09/07/24 09:03 81 MG Atorvastatin Calcium 20 mg HS PO 09/05/24 22:00 09/06/24 23:25 20 MG Levothyroxine Sodium 125 mcg QAM@0600 PO 09/06/24 06:00 UNV Pantoprazole Sodium 40 mg DAILY@0600 PO 09/06/24 06:00 09/07/24 06:41 40 MG Enoxaparin Sodium 40 mg DAILY SC 09/06/24 10:00 09/07/24 09:03 40 MG Risperidone 1 mg BID PO 09/06/24 22:00 09/07/24 09:03 1 MG Lorazepam 0.5 mg Q4HPRN PRN IV 09/06/24 12:30 Cyanocobalamin 500 mcg DAILY PO 09/07/24 10:00 09/07/24 09:03 500 MCG Examination General examination- bruise noted over the forehead, on the right side of the scalp, on the right fore arm, HEENT- PEERLA, no acute nasal discharge Cardiovascular- S1-S2 audible, rate and rhythm regular, no murmur Respiratory- CTAB, no wheeze or rhonchi Gastrointestinal-nontender, bowel sound+. Nondistended Musculoskeletal-no acute joint swelling or tenderness or redness# Lower extremity- no leg edema Neurological- cranial nerves intact, no acute dysarthria or dysphagia Skin- bruise noted over the forehead, on the right side of the scalp, on the right fore arm, laboratory and microbiology Laboratory Tests 09/07/24 05:11 Test 09/07/24 05:11 Range/Units Serum Glucose 77 74-106 mg/dL Problem List/Assessment/Plan Problem List/Assessment/Plan # agitation, improved -status post Neurology consult, new recommendation reviewed and appreciated - MRI of the brain revealed-No acute intracranial process identified. Mild global cortical atrophy and stable mild chronic microvascular ischemic changes. Chronic mild paranasal sinus disease. - CT angio of the head and neck revealed-No evidence of hemodynamically significant intracranial stenosis, proximal occlusion or aneurysm, Less than 50% stenosis of the left and Right proximal internal carotid artery secondary to atherosclerotic plaque. -continue risperidone 1 mg p.o. b.i.d. -monitor mental status -Stereotyper Helper spoke to patient's caregiver, son Lincoln [phone] discussed patient's current medical condition and plan of care. Both of them agreed with the plan of care. # Mechanical fall, no loss of consciousness -CT head negative for intracranial hemorrhage or infarction -carotid Doppler revealed> 70% stenosis in the left internal carotid artery -- MRI of the brain revealed-No acute intracranial process identified. Mild global cortical atrophy and stable mild chronic microvascular ischemic changes. Chronic mild paranasal sinus disease. - CT angio of the head and neck revealed-No evidence of hemodynamically significant intracranial stenosis, proximal occlusion or aneurysm, Less than 50% stenosis of the left and Right proximal internal carotid artery secondary to atherosclerotic plaque. -continue risperidone 1 mg p.o. b.i.d. 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 Mild global cortical atrophy and stable mild chronic microvascular ischemic changes. Chronic mild paranasal sinus disease. CT angio of the head and neck revealed-No evidence of hemodynamically significant intracranial stenosis, proximal occlusion or aneurysm, Less than 50% stenosis of the left and Right proximal internal carotid artery secondary to atherosclerotic plaque. # Dementia --status post Neurology consult, new recommendation reviewed and appreciated - MRI of the brain revealed-No acute intracranial process identified. Mild global cortical atrophy and stable mild chronic microvascular ischemic changes. Chronic mild paranasal sinus disease. - CT angio of the head and neck revealed-No evidence of hemodynamically significant intracranial stenosis, proximal occlusion or aneurysm, Less than 50% stenosis of the left and Right proximal internal carotid artery secondary to atherosclerotic plaque. -continue risperidone 1 mg p.o. b.i.d. -monitor mental status -Stereotyper Helper spoke to patient's caregiver, son Lincoln [phone] discussed patient's current medical condition and plan of care. Both of them agreed with the plan of care. # history of TIA -carotid Doppler revealed> 70% stenosis in the left internal carotid artery --status post Neurology consult, new recommendation reviewed and appreciated - MRI of the brain revealed-No acute intracranial process identified. Mild global cortical atrophy and stable mild chronic microvascular ischemic changes. Chronic mild paranasal sinus disease. - CT angio of the head and neck revealed-No evidence of hemodynamically significant intracranial stenosis, proximal occlusion or aneurysm, Less than 50% stenosis of the left and Right proximal internal carotid artery secondary to atherosclerotic plaque. -continue risperidone 1 mg p.o. b.i.d. -monitor mental status -Stereotyper Helper spoke to patient's caregiver, son Lincoln [phone] discussed patient's current medical condition and plan of care. Both of them agreed with the plan of care. -continue aspirin 81 mg p.o. daily -Atorvastatin 20 mg p.o. q.h.s. # hypothyroidism -TSH 6.85, F T3 2.98, F T4 0.95 -as per caregiver patient had reaction from levothyroxine before, patient did not take any levothyroxine in last 3 years -DC Levothyroid for now -patient and his caregiver was advised to follow up with the primary care physician for further Re evaluation of restarting levothyroxine. -Stereotyper Helper spoke to patient's caregiver, son Lincoln [phone] discussed patient's current medical condition and plan of care. Stereotyper Helper discussed about having a 24/7 caregiver for the patient or placing the patient into a assisted living facility. Stereotyper Helper also discussed about the restarting levothyroxine for elevated TSH. As per caregiver patient had recurrent reaction to the levothyroxine with a different brands. Nothing kept him out of reaction. Patient's caregiver was advised to follow up with the primary care physician regarding restarting levothyroxine and monitoring side effects. Both of them agreed with the plan of care. - # hyperlipidemia -Atorvastatin 20 mg p.o. q.h.s. Goals of care/advance care planning; FULL CODE; discussed with the patient PUD prophylaxis: DVT prophylaxis: Plan discussed with Dr. Wilkinson,,, nursing staff, patient Stereotyper Helper spoke to patient's caregiver, son Lincoln [phone] discussed patient's current medical condition and plan of care. Both of them agreed with the plan of care. Total time spent on patient evaluation, chart review, assessment and plan, discussion discussion >20 minutes Plan discussed with: Patient Plan discussed with: Patient, Son (Caregiver, RN), Other My Orders My Orders Orders - CLARISA ORTIZ Procedure Category Date Status Time Angio Head/Neck CT 09/07/24 Resulted 08:00 Brain Head Wo Contrast MRI 09/07/24 Resulted 09:29 Dietary NOTICE 09/07/24 Transmitted Recommendations 14:21 Dietary Evaluation Review Comments: 1) Consider PABLITO 1 pkt BID for wounds 2) Continue current plan of care Expected Outcomes/Goals: F/U in 3-5 days Date of Service: Sep 07, 2024 Billing Provider: JANAE WILKINSON MD Common Visit Codes: [id number] INP/OBS CARE(HIGH) CLARISA ORTIZ Sep 07, 2024 16:25 JANAE WILKINSON MD Sep 09, 2024 04:20
[2024-09-07] MEDS: IOHEXOL 350 MG/ML 100ML IJ ONE (19:30)
[2024-09-08 01:00] VITALS: BP 107/55; PULSE 96; RESP 18; TEMP 97.7; O2SAT 91
[2024-09-08 05:00] VITALS: BP 123/52; PULSE 85; RESP 18; TEMP 97.7; O2SAT 93
[2024-09-08 05:26] LABS: Basophils # (auto) 0 10 ^3/uL (0-0.2); Eosinophils # (auto) 0.1 10 ^3/uL (0-0.8); Hemoglobin 13.8 g/dL (13.5-17.5); Mean Corpuscular Hemoglobin 35.3 pg (28.0-32.0); Mean Corpuscular Hgb Conc. 33.8 g/dL (32.0-36.0); Monocytes # (auto) 0.8 10 ^3/uL (0-1.3); Neutrophils # (auto) 3.5 10 ^3/uL (1.6-8.6)
[2024-09-08 05:28] LABS: Basophils % (auto) 0.8 % (0.0-2.0); Eosinophils % (auto) 1.3 % (0.0-7.0); Hematocrit 40.9 % (41.0-53.0); Lymphocytes # (auto) 0.7 10 ^3/uL (0.4-5.4); Lymphocytes % (auto) 13.2 % (10.0-50.0); Mean Corpuscular Volume 104.4 fL (80.0-100.0); Monocytes % (auto) 15.2 % (0.0-12.0); Neutrophils % (auto) 69.5 % (37.0-80.0); Nucleated Red Blood Cells % 0.2 %; Platelet Count (auto) 194 10^3/uL (140-450); Red Blood Cells 3.92 10^6/uL (4.5-5.90); Red Cell Distribution Width 14.7 % (11.8-14.3); White Blood Cell 5.1 10^3/uL (4.4-10.8)
[2024-09-08 05:34] LABS: Calcium 9.1 mg/dL (8.7-10.4); Chloride 111 mmol/L (98-107); Potassium 3.6 mmol/L (3.5-5.1); Sodium 144 mmol/L (136-145)
[2024-09-08 05:35] LABS: Anion Gap 13 (5-15); Carbon Dioxide 20 mmol/L (20-31)
[2024-09-08 05:40] LABS: BUN/Creatinine Ratio 18.7 (10.0-20.0); Blood Urea Nitrogen 14 mg/dL (9-23); Glucose 81 mg/dL (74-106)
[2024-09-08 08:30] VITALS: PULSE 68; RESP 16; O2SAT 94
[2024-09-08 08:51] VITALS: BP 107/54; PULSE 68; RESP 16; TEMP 97.7; O2SAT 94
[2024-09-08] MEDS ORDERED: CYAN-17 PO (09:46)
[2024-09-08] MEDS ORDERED: QUET50TA PO (09:46)
[2024-09-08 10:37] VITALS: BP 107/54; PULSE 68; RESP 16; TEMP 97.7; O2SAT 94
--- NOTE | 2024-09-08 11:20 | DVHDSRES ---
Discharge Summary Date of Admission Resident Creating Document: CLARISA ORTIZ Sep 04, 2024 at 21:44 Date of Discharge: Sep 08, 2024 Admitting Diagnosis Fall head injury Labs/Diagnostic Data: Laboratory Results Test 09/08/24 04:50 09/06/24 20:56 09/06/24 06:17 09/05/24 05:21 White Blood Count 5.1 10^3/uL (4.4-10.8) Red Blood Count 3.92 10^6/uL (4.5-5.90) Hemoglobin 13.8 g/dL (13.5-17.5) Hematocrit 40.9 % (41.0-53.0) Mean Corpuscular Volume 104.4 fL (80.0-100.0) Mean Corpuscular Hemoglobin 35.3 pg (28.0-32.0) Mean Corpuscular Hemoglobin Concent 33.8 g/dL (32.0-36.0) Red Cell Distribution Width 14.7 % (11.8-14.3) Platelet Count 194 10^3/uL (140-450) Mean Platelet Volume 8.1 fL (6.9-10.8) Neutrophils (%) (Auto) 69.5 % (37.0-80.0) Lymphocytes (%) (Auto) 13.2 % (10.0-50.0) Monocytes (%) (Auto) 15.2 % (0.0-12.0) Eosinophils (%) (Auto) 1.3 % (0.0-7.0) Basophils (%) (Auto) 0.8 % (0.0-2.0) Neutrophils # (Auto) 3.5 10 ^3/uL (1.6-8.6) Lymphocytes # (Auto) 0.7 10 ^3/uL (0.4-5.4) Monocytes # (Auto) 0.8 10 ^3/uL (0-1.3) Eosinophils # (Auto) 0.1 10 ^3/uL (0-0.8) Basophils # (Auto) 0 10 ^3/uL (0-0.2) Nucleated Red Blood Cells 0.2 % Sodium Level 144 mmol/L (136-145) Potassium Level 3.6 mmol/L (3.5-5.1) Chloride Level 111 mmol/L (98-107) Carbon Dioxide Level 20 mmol/L (20-31) Anion Gap 13 (5-15) Blood Urea Nitrogen 14 mg/dL (9-23) Creatinine 0.75 mg/dL (0.700-1.30) Glomerular Filtration Rate Calc 87 mL/min (>90) BUN/Creatinine Ratio 18.7 (10.0-20.0) Serum Glucose 81 mg/dL (74-106) Calcium Level 9.1 mg/dL (8.7-10.4) Urine Color Yellow (Yellow) Urine Clarity Clear (Clear) Urine pH 5.5 (5.0-9.0) Urine Specific Oliver 1.016 (1.001-1.035) Urine Protein Negative (Negative) Urine Ketones 2+ (Negative) Urine Blood 3+ /uL (Negative) Urine Nitrite Negative (Negative) Urine Bilirubin Negative (Negative) Urine Urobilinogen Normal mg/dL (Negative) Urine Leukocyte Esterase Negative /uL (Negative) Urine RBC 360 /hpf (0 - 3) Urine WBC 17 /hpf (0 - 3) Urine Squamous Epithelial Cells Few /hpf (<5) Urine Bacteria None seen /hpf (None Seen) Urine Mucus Few (None Seen) Urine Glucose Normal mg/dL (Normal) Urine Opiates Screen Neg (NEGATIVE) Urine Fentanyl Screen Neg (NEGATIVE) Urine Barbiturates Screen Neg (NEGATIVE) Urine Phencyclidine Screen Neg (NEGATIVE) Urine Amphetamines Screen Neg (NEGATIVE) Urine Benzodiazepines Screen Neg (NEGATIVE) Urine Cocaine Screen Neg (NEGATIVE) Urine Cannabinoids Screen Neg (NEGATIVE) Free Thyroxine (T4) Calculated 0.95 ng/dL (0.89-1.76) Free Triiodothyronine (T3) pg/mL 2.98 pg/mL (2.3-4.2) Total Bilirubin 1.0 mg/dL (0.2-1.0) Aspartate Amino Transferase (AST) 22 U/L (13-40) Alanine Aminotransferase (ALT) 18 U/L (7-40) Alkaline Phosphatase 76 U/L (46-116) Total Protein 6.1 g/dL (5.7-8.2) Albumin 3.6 g/dL (3.2-4.8) Triglycerides Level 80 mg/dL (< 150) Cholesterol Level 126 mg/dL (< 200) LDL Cholesterol 69 mg/dL (< 100) HDL Cholesterol 42 mg/dL (40-59) Test 09/04/24 22:52 09/04/24 20:37 09/04/24 14:22 09/04/24 14:20 Vitamin B12 Level 249 pg/mL (211-911) Vitamin D 25-Hydroxy 48.9 ng/mL (30.0-100) Folic Acid 33.25 ng/mL (>5.38) Plasma/Serum Blood Alcohol < 3.0 mg/dL (<10) Prothrombin Time 10.7 sec (9.3-11.8) Prothrombin Time INR 1.01 (0.9-1.15) Activated Partial Thromboplast Time 23.1 SEC (24.5-34.5) Hemoglobin A1c 5.3 % A1C (<5.7) Troponin I High Sensitivity 3 ng/L (</=54) Thyroid Stimulating Hormone (TSH) 6.85 uIU/mL (0.55-4.78) B-Type Natriuretic Peptide 170.59 pg/mL (0-100) Other Laboratory Tests 09/08/24 04:50 Brief Hx & Hospital Course: Patient is 89 years old male with past medical history of HLD, TIA, hypothyroidism, ? Dementia was to the ER after a fall at home. As per patient patient woke up from sleep 1 day ago and tripped over and fell and he hit his head. Patient denied losing consciousness. Denied chest pain, shortness of breath, dizziness. Initial blood lab workup revealed BNP 170, troponin I 3, TSH 6.85, serum alcohol level > 3, CT head negative for acute intracranial hemorrhage or infarction. Carotid Doppler revealed > 70% stenosis in the left internal carotid artery. MRI of the brain revealed-No acute intracranial process identified. Mild global cortical atrophy and stable mild chronic microvascular ischemic changes. Chronic mild paranasal sinus disease. CT angio of the head and neck revealed-No evidence of hemodynamically significant intracranial stenosis, proximal occlusion or aneurysm, Less than 50% stenosis of the left and Right proximal internal carotid artery secondary to atherosclerotic plaque. During hospitalization patient had an episode of agitation and aggressive behavior. Patient was given Ativan and risperidone and this medication help patient to come down. Patient was also seen by neurologist. Following that MRI of the brain and CT angio of the head and neck was done. Enterprise Systems Manager spoke to patient's caregiver and patient's son and described in detail of the plan of the care. Patient was staying come in quite for last 2 days. Patient is hemodynamically stable to be discharged. Enterprise Systems Manager spoke to patient's caregiver, son Lincoln [phone] discussed patient's current medical condition and plan of care. Enterprise Systems Manager discussed about having a 24/7 caregiver for the patient or placing the patient into a assisted living facility. Enterprise Systems Manager also discussed about the restarting levothyroxine for elevated TSH. As per caregiver patient had recurrent reaction to the levothyroxine with a different brands. Nothing kept him out of reaction. Patient's caregiver was advised to follow up with the primary care physician regarding restarting levothyroxine and monitoring side effects. Both of them agreed with the plan of care. Patient was also advised to follow up with the primary care physician in 1 week and to follow up with the psychiatrist for further evaluation and care of dementia. Patient was discharged on cyanocobalamin and Seroquel 25 mg p.o. q.pm. Med was sent PMH-HLD, TIA,? Dementia PSH- Rt ankle surgery x4, lump removal from right elbow Allergy- NKDA Personal History/ Social History- lives alone, denies smoking/alcohol/other drug abuse Patient was seen today at the bedside. Patient reports doing okay today Cardiovascular- deny acute chest pain or shortness of breath or cough or palpitation Respiratory- denies cough or short of breath or wheezing Gastrointestinal- denies any rectal bleeding, nausea or vomiting Musculoskeletal-denies acute joint swelling or tenderness or redness Neurological- denies acute dysarthria, dysphagia, change in vision Psychiatry- denies depression or SI or HI Skin- denies acute rash or purpura General examination- bruise noted over the forehead, on the right side of the scalp, on the right fore arm, HEENT- PEERLA, no acute nasal discharge Cardiovascular- S1-S2 audible, rate and rhythm regular, no murmur Respiratory- CTAB, no wheeze or rhonchi Gastrointestinal-nontender, bowel sound+. Nondistended Musculoskeletal-no acute joint swelling or tenderness or redness# Lower extremity- no leg edema Neurological- cranial nerves intact, no acute dysarthria or dysphagia Skin- bruise noted over the forehead, on the right side of the scalp, on the right fore arm, Operations or Procedures PATIENT: ROMANA BARROS ACCT: [id number] UNIT: [id number] : 1935 LOC: CENTRAL ROOM / BED: 0206 / A AGE / SEX: 89 / M ADM STATUS: ADM IN SERVICE 0929 ORDERING PHYSICIAN: CLARISA ORTIZ PROCEDURE(s): MBHL - BRAIN HEAD WO CONTRAST REASON: CVA ORDER NUMBER(s): [id number], ACCESSION NUMBER(s): [id number] EXAM: MRI BRAIN HEAD WO CONTRAST HISTORY: CVA COMPARISON: CT HEAD WITHOUT CONTRAST on DOS: 09/04/24, BRAIN HEAD WO CONTRAST on DOS: 12/03/22, HEAD WITHOUT CONTRAST on DOS: 12/02/22 TECHNIQUE: MRI was performed utilizing multiple appropriate imaging planes and pulse sequences. FINDINGS: SUPRATENTORIAL REGION: No evidence for acute ischemia or intracranial hemorrhage. Scattered ill-defined FLAIR hyperintensities are noted within the bilateral periventricular region, prado radiata and subcortical white matter. POSTERIOR FOSSA: Unremarkable. BRAINSTEM: Unremarkable. SELLAR/SUPRASELLAR REGION: Unremarkable. VENTRICLES, CISTERNS, SULCI: Age-appropriate. ORBITS: Unremarkable. PARANASAL SINUSES: Mild diffuse paranasal sinus mucosal thickening. A small mucous retention cyst noted in the left sphenoid sinus. MASTOID AIR CELLS: Unremarkable. VASCULATURE: Unremarkable. BONES/ SOFT TISSUES: Unremarkable. OTHER: None. IMPRESSION: 1. No acute intracranial process identified. 2. Mild global cortical atrophy and stable mild chronic microvascular ischemic changes. 3. Chronic mild paranasal sinus disease. ATED BY: VERONICA LINK MD DICTATED DATE/TIME: 09/07/24 110 SIGNED BY: VERONICA LINK MD SIGNED DATE/TIME: 09/07/24 110 CC: PATIENT: ROMANA BARROS ACCT: [id number] UNIT: [id number] : 1935 LOC: CENTRAL ROOM / BED: 0206 / A AGE / SEX: 89 / M ADM STATUS: ADM IN SERVICE 0800 ORDERING PHYSICIAN: CLARISA ORTIZ PROCEDURE(s): [place] - ANGIO HEAD/Neck REASON: H/O TIA ORDER NUMBER(s): [id number], ACCESSION NUMBER(s): [id number] INDICATION: H/O TIA COMPARISON: None TECHNIQUE: CTA head without and with intravenous contrast. CTA neck with intravenous contrast. 3D image postprocessing was performed on a dedicated workstation and images were used for interpretation and reporting. Radiation Dose Information: CT Dose: CTDI volume is 23.29 mGy. Dose-length product is 984.08 mGy*cm FINDINGS: CT head: There is no evidence of acute intracranial hemorrhage, extra-axial collection, mass effect, midline shift, herniation or hydrocephalus. The ventricles, sulci and cisterns are age appropriate. The felder-white differentiation is intact. The visualized paranasal sinuses and mastoid air cells are clear. The surrounding soft tissues and osseous structures are unremarkable. CTA head: There is normal enhancement of the visualized distal internal carotid, anterior and middle cerebral arteries. There is a normal anterior communicating artery complex. There are bilateral posterior communicating arteries. The vertebral, basilar, cerebellar and posterior cerebral arteries are within normal limits. The early parenchymal enhancement is grossly unremarkable. The visualized intracranial venous structures are grossly unremarkable. CTA neck: The visualized thoracic aortic arch and proximal great vessels are unremarkable. Less than 50% stenosis of the left proximal internal carotid artery secondary to atherosclerotic plaque. 50% short-segment stenosis of the proximal right internal carotid artery secondary to atherosclerotic plaque. The cervical segments of the right and left vertebral arteries are within normal limits. Right vertebral artery appears to terminate at the level of PICA (normal variant ). The limited visualized lung apices are clear. Multilevel degenerative changes of the spine. IMPRESSION: No evidence of hemodynamically significant intracranial stenosis, proximal occlusion or aneurysm. Less than 50% stenosis of the left proximal internal carotid artery secondary to atherosclerotic plaque. 50% short-segment stenosis of the proximal right internal carotid artery secondary to atherosclerotic plaque. All CT scans at this medical facility are performed using dose modulation techniques as appropriate to a performed exam including the following: Automated exposure control was utilized; adjustment of the MA and/or KV according to patient size; and use of iterative reconstruction technique. ATED BY: DERECK HECK MD DICTATED DATE/TIME: 09/07/24 1512 SIGNED BY: DERECK HECK MD SIGNED DATE/TIME: 09/07/24 1512 CC: Signed PATIENT: ROMANA BARROS ACCT: [id number] UNIT: [id number] : 1935 LOC: OVERFLOW ROOM / BED: 1018-ER / A AGE / SEX: 89 / M ADM STATUS: ADM IN SERVICE 43 ORDERING PHYSICIAN: JON IHNOJOSA RESIDENT PROCEDURE(s): CARCL - CAROTID DUPLX W COLOR DOP REASON: Dizziness ORDER NUMBER(s): [id number], ACCESSION NUMBER(s): [id number] Carotid Duplex Date: 09/04/2024 09:54 PM Clinical History: Dizziness Comparison: CAROTID DUPLX W COLOR DOP on DOS: 12/03/22 Technique: Duplex Doppler evaluation of the extracranial carotid and vertebral arteries including color Doppler and spectral/pulsed waveform analysis was performed. Findings: RIGHT SIDE: The peak systolic velocities are 69.4 cm/s in the distal CCA and 76.2 cm/s in the proximal ICA.The ICA/CCA ratio is less than 2. The external carotid artery is patent with peak systolic velocity of 95.4 cm/s proximally. There is appropriate antegrade flow in the right vertebral artery, 53.1 cm/s. LEFT SIDE: The peak systolic velocities are 54 0.5 cm/s in the distal CCA and 161 0.6 cm/s in the proximal ICA.. The ICA/CCA ratio is 3.0 greater than 70% stenosis The external carotid artery is patent with peak systolic velocity of 220.5 cm/s proximally. There is appropriate antegrade flow in the left vertebral artery. IMPRESSION: 1. No hemodynamically significant stenosis noted in the right carotid system. 2. Greater 70% stenosis of the left internal carotid. 3. Reference: Radiology 2003; 229:340-346 ATED BY: RON KING Jr., DO DICTATED DATE/TIME: 09/04/242246 SIGNED BY: RON KING Jr., DO SIGNED DATE/TIME: 09/04/242246 CC: Signed PATIENT: ROMANA BARROS ACCT: [id number] UNIT: [id number] : 1935 LOC: ER ROOM / BED: / AGE / SEX: 89 / M ADM STATUS: REG ER SERVICE 1411 ORDERING PHYSICIAN: ROLANDO SALAS MD PROCEDURE(s): HWOCT - HEAD WITHOUT CONTRAST REASON: fall ORDER NUMBER(s): [id number], ACCESSION NUMBER(s): [id number] EXAM: CT HEAD WITHOUT CONTRAST INDICATION: fall TECHNIQUE: CT of the head without intravenous contrast. Radiation Dose Information: CT Dose: CTDI volume is 63.35 mGy. Dose-length product is 1248.19 mGy*cm The dose indicators for CT are the volume Computed Tomography (CT) Dose Index (CTDIvol) and the Dose Length Product (DLP), and are measured in units of mGy and mGy-cm, respectively. These indicators are not patient dose, but values generated from the CT scanner acquisition factors. The report includes radiation exposure data for exposures received during this examination. COMPARISON: BRAIN HEAD WO CONTRAST on DOS: 12/03/22, CT ANGIO CHEST CONTRAST on DOS: 12/02/22, HEAD WITHOUT CONTRAST on DOS: 12/02/22 FINDINGS: There is no evidence of acute intracranial hemorrhage, extra-axial collection, mass effect, midline shift, herniation or hydrocephalus. The ventricles, sulci and cisterns are age appropriate. The felder-white differentiation is intact. Patchy periventricular and subcortical white matter hypoattenuation is nonspecific but may be related to small vessel ischemic disease. The visualized paranasal sinuses and mastoid air cells are clear. The surrounding soft tissues and osseous structures are unremarkable. IMPRESSION: No acute intracranial abnormality. ATED BY: JEREMY KIMBALL MD DICTATED DATE/TIME: 09/04/24 143 SIGNED BY: JEREMY KIMBALL MD SIGNED DATE/TIME: 09/04/24 143 CC: Condition at Discharge: Stable Final Diagnosis/Problems List Fall Head injury, Laceration of the face and right-sided scalpHesitation likely due to hospital dementia Dementia Agitation and aggressive behavior at times History of TIA Hyperlipidemia Hypothyroidism-needs to re-evaluate with the primary care physician abril levothyroxine as patient had a history of rash or drug reactionHyperlipidemia Discharge Disposition: Home Discharge Instruct/Medications Diet: Regular Activity: Light activity Follow Up/Referral: Please follow up with the primary care physician in 1 week Also follow up with the psychiatrist after getting a referral from your primary care physician for further evaluation and care of the dementia Medications: Seroquel as prescribed Cyanocobalamin as prescribed Discharge Statement: "Patient was advised to return to the ER or call 911 if any headaches, dizziness, shortness of breath, chest pain, abdominal pain, bleeding, fevers, or worsening of medical condition. Patient was counseled about treatment plan, medications, possible side effects, patientverbalized understanding. All questions were answered to the best of my ability. This discharge took greater then 30 minutes in planning, reviewing documentation, counseling the patient, and discussing with other team members." ASSESSMENT ASSESSMENT Assessment FallLaceration of the face and right-sided scalpHesitation likely due to hospital dementiaDementiaHistory of TIAHyperlipidemiaHypothyroidism-needs to re- evaluate with the primary care physician abril levothyroxine as patient had a history of rash or drug reactionHyperlipidemia Date of Service: Sep 08, 2024 Billing Provider: JANAE MORENO MD Common Visit Codes: 94113-YHW/OBS DISCH DAY >30min CLARISA ORTIZ RESIDENT Sep 08, 2024 11:20 JANAE MORENO MD Sep 09, 2024 04:21
== END 2024-09-08 12:50 | disposition home or self-care (01) | DRG 913 ==
LOC: ER 13:34 → OVERFLOW 21:44 → EAST 23:48 → CENTRAL 09-06 13:11
PROVIDERS: ADMIT Internal Medicine Geriatric Medicine; ATTEND Internal Medicine Geriatric Medicine
DX: S09.90XA Unspecified injury of head, initial encounter (principal); G93.41 Metabolic encephalopathy; S01.81XA Laceration without foreign body of other part of head, initial encounter; E78.5 Hyperlipidemia, unspecified; I65.23 Occlusion and stenosis of bilateral carotid arteries; E03.9 Hypothyroidism, unspecified; W01.0XXA Fall on same level from slipping, tripping and stumbling without subsequent striking against object, initial encounter; F03.90 Unspecified dementia, unspecified severity, without behavioral disturbance, psychotic disturbance, mood disturbance, and anxiety; Z86.73 Personal history of transient ischemic attack (TIA), and cerebral infarction without residual deficits; Z82.49 Family history of ischemic heart disease and other diseases of the circulatory system; Z79.82 Long term (current) use of aspirin; Z79.899 Other long term (current) drug therapy; Y93.89 Activity, other specified; Y92.89 Other specified places as the place of occurrence of the external cause; Y99.8 Other external cause status
CPT/HCPCS: 36415; 70450; 70496; 70551; 80048; 80053; 80061; 80307; 80320; 81001; 82306; 82607; 82746; 83036; 83880; 84439; 84443; 84481; 84484; 85025; 85610; 85730; 93886; 97110; 97116; 97163; 97530; G0378